=== PATIENT | male | born 1935 | race Caucasian/White ===

== ENCOUNTER → 2019-09-25 09:57 | Outpatient (POV) | payer MEDICARE, OTHER, SELFPAY | PROVIDERS: Visit Provider Dermatology | DX: Z00.00 Encounter for general adult medical examination without abnormal findings (principal) ==

== ENCOUNTER → 2019-12-23 10:52 | Outpatient (CLI) | payer MEDICARE, OTHER, SELFPAY ==
[2019-12-24 16:29] LABS: Covid-19 Nasal PCR Sendout UK Not Detected
== END ==
PROVIDERS: PCP Family Medicine; Visit Provider Ophthalmology
DX: Z03.818 Encounter for observation for suspected exposure to other biological agents ruled out (principal)
CPT/HCPCS: U0003

== ENCOUNTER 2019-12-25 08:26 | Day surgery (SDC) | payer MEDICARE, OTHER, SELFPAY ==
--- NOTE | 2019-12-20 12:37 | SUR.PREOP ---
12/20/2019 @ 5504--PHONE CALL MADE TO PATIENT. PATIENT UNDERSTANDS THAT LAB WORK AND COVID TESTING NEEDS TO BE COMPLETED @ 1100 ON 12/23/2019. PATIENT UNDERSTANDS IF LAB WORK AND COVID-19 TESTS ARE NOT COMPLETED BY 12PM ON THAT DATE, THE SURGERY SCHEDULED WILL BE CANCELLED AND RESCHEDULED FOR ANOTHER TIME.
[2019-12-24 14:57] VITALS: BMI 25.8
[2019-12-25] VITALS (9 sets, daily range): BP systolic 124–152; BP diastolic 58–84; PULSE 51–65; RESP 18–20; TEMP 36.2–37; O2SAT 95–100
== END 2019-12-25 10:56 | disposition home or self-care (01) ==
LOC: OR 08:28
PROVIDERS: PCP Family Medicine; Visit Provider Ophthalmology
DX: H25.811 Combined forms of age-related cataract, right eye (principal); E03.9 Hypothyroidism, unspecified; Z79.899 Other long term (current) drug therapy
CPT/HCPCS: 66984; V2632

== ENCOUNTER → 2020-06-24 10:58 | Outpatient (POV) | payer MEDICARE, OTHER, SELFPAY | PROVIDERS: Visit Provider Dermatology | DX: Z00.00 Encounter for general adult medical examination without abnormal findings (principal) ==

== ENCOUNTER → 2020-07-15 09:51 | Outpatient (POV) | payer MEDICARE, OTHER, SELFPAY | PROVIDERS: Visit Provider Dermatology | DX: Z00.00 Encounter for general adult medical examination without abnormal findings (principal) ==

== ENCOUNTER → 2020-08-04 10:40 | Outpatient (CLI) | payer MEDICARE, OTHER, SELFPAY ==
[2020-08-04 11:18] LABS: Basophils % 0.5 % (0.1-2.0); Eosinophils # 0.1 K/mm3 (0.0-0.4); Eosinophils % 0.9 % (0.1-12.0); Hematocrit 47.7 % (42.0-52.0); Hemoglobin 16.2 g/dL (14.1-18.0); Lymphocytes # 1.5 K/mm3 (0.7-4.5); Mean Corpuscular HGB Conc 33.9 g/dL (31.8-35.4); Mean Corpuscular Hemoglobin 31.6 pg (27.0-31.2); Mean Corpuscular Volume 93.3 fl (80-94); Mean Platelet Volume 8.6 fl (7.4-10.4); Monocytes # 0.3 K/mm3 (0.1-1.0); Monocytes % 5.8 % (1.7-9.3); Neutrophils # 3.4 K/mm3 (1.8-7.8); Neutrophils % 64.8 % (37.0-80.0); Platelet Count 148 K/mm3 (142-424); Red Blood Count 5.12 M/mm3 (4.60-6.20); Red Cell Distribution Width 13.7 % (11.5-17.5); White Blood Count 5.2 K/mm3 (4.8-10.8)
--- NOTE | 2020-08-04 11:28 | ECG_ITS ---
APPROVED REPORT Exam: Resting ECG HR:60 bpm ECG Measurements Heart Rate 60 AXES MA 156 P 16 QRSd 88 QRS 10 QT 386 T -4 QTc 386 Conclusion Normal sinus rhythm Normal ECG Electronically signed by : Diego Fields, 08/05/2020 17:29:14
[2020-08-04 12:11] LABS: Chloride 103 mmol/L (98-107); Sodium 137 mmol/L (136-145)
[2020-08-04 12:14] LABS: Blood Urea Nitrogen 26 mg/dl (9-20); Calcium 9.9 mg/dl (8.4-10.2); Carbon Dioxide 28 mmol/L (22.0-30.0); Estimated Glomerular Filt Rate 53 ml/min (>60); GFR (African American) 64 ML/MIN (>60); Glucose 73 mg/dl (74-100)
[2020-08-04 12:39] LABS: Coronavirus 19 IgG Antibody Negative (Negative); Coronavirus 19 IgM Antibody Negative (Negative)
== END ==
PROVIDERS: Visit Provider Otolaryngology
DX: Z01.818 Encounter for other preprocedural examination (principal); Z03.818 Encounter for observation for suspected exposure to other biological agents ruled out; H61.21 Impacted cerumen, right ear; H60.8X1 Other otitis externa, right ear; L57.0 Actinic keratosis; L98.9 Disorder of the skin and subcutaneous tissue, unspecified
CPT/HCPCS: 36415; 80048; 85025; 86328; 93005

== ENCOUNTER 2020-08-05 06:08 | Day surgery (SDC) | payer MEDICARE, OTHER, SELFPAY ==
[2020-07-31 12:36] VITALS: BMI 25.8
[2020-08-05 06:22] VITALS: BP 146/71; PULSE 69; RESP 18; TEMP 36.3; O2SAT 95
--- NOTE | 2020-08-05 07:36 | P.PN_ITS ---
[facility] Anesthesia Checklist - Patient Identification Patient Identification: Arm Band - Structural Data Admitted From: Home Planned Operative Procedure/s: excision of forehead lesion x2 Consent for Planned Operative Procedure(s) Verified: Yes Verified Documents: Surgical Consent, History and Physical - NPO Status Verified Time NPO: 00:00 - Additional verifications Anesthesia Reactions: No Hx Blood Transfusions: No Blood Transfusion Reaction: No - Airway Assessment C-Spine Mobility Assessed: Yes (mp2) TMJ Mobility Assessed: Yes Dentition: Good Dentition - Neurological Assessment Level of Consciousness: Awake, Alert - Anesthesia Plan Anesthesia Risk discussed: Yes Anesthesia Plan: Verified ASA Class: II Anesthesia Type: MAC [facility] History I have reviewed the patient's past medical history: Yes Medical History: Reports:: BPH, Cancer (skin), Gastroesophageal Reflux Disease(GERD), Hyperlipidemia, Hypertension Denies:: Diabetes Mellitus Type 1, Diabetes Mellitus Type 2, Internal Pacemaker, MRSA, Seizures *Have you ever received a pneumonia vaccine?: Yes *Have you received a flu vaccine this season?: Yes Other Medical History: Reports: Hypothyroidism, Thyroid Disease, Other. Denies: Blood Transfusion Reaction Anesthesia experience/problems:: nac Other Surgeries: Yes: Cancer Surgery, Hernia Repair, Skin Cancer Excision, Other. No: Pacemaker Amputation: No Fractures: No - *Social History Last grade of school completed: Some college Smoking Status: Never smoker Alcohol Intake: never Substance Use Type: denies use *Occupational Status:: retired Housing: house Household Members: spouse *Travel in the last 8 weeks: None Family Hx:: No significant family history
--- NOTE | 2020-08-05 08:28 | HMH.OPNOTE ---
Date of procedure: 08/05/20 Pre-op Diagnosis:: 1. 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 Neoplasm forehead right lateral 2 cm Post-op Diagnosis:: same Procedure performed:: 1. Excision of neoplasm forehead center 2.8 cm with tissue rearrangement geometric plastic repair 2. Excision neoplasm forehead right lateral 2 cm with simple repair Surgeon:: Addi Laughlin MD TONGUE AND GROOVE MACHINE SETTER:: Kenton Marquez Anesthesia: MAC Estimated blood loss (mL): 10 Operative findings:: same Operative note:: The face was prepped and draped the eyes were protected with Steri-Strips the perilesional areas were infiltrated with a total of 4.5 cc of lidocaine 2% lidocaine with epi. The lesions were marked out and the marisol out on the forehead center measured 2.8 cm the marisol up was incised and the lesion was excised and submitted. Bleeding was stopped with bipolar cautery. Medial and lateral incisions were made Surgicel snow was placed in the defect and a tissue rearrangement geometric plastic repair was done with interrupted 4-0 nylon sutures. The lesion on the right forehead lateral was marked out, it measured 2 cm, the marisol out was incised and the lesion was excised. Bleeding was stopped with bipolar cautery. Surgicel snow was placed in the defect and a simple repair was done with interrupted 4-0 nylon sutures, a Dermabond dressing was applied and the patient was sent to recovery in good general condition. Condition: stable Disposition: PACU Complications:: none
[2020-08-05 08:30] VITALS: BP 109/71; PULSE 67; RESP 16; TEMP 36.2; O2SAT 93
[2020-08-05 08:40] VITALS: BP 114/67; PULSE 65; RESP 16; O2SAT 95
[2020-08-05 08:50] VITALS: BP 110/61; PULSE 62; RESP 16; O2SAT 93
[2020-08-05 09:00] VITALS: BP 117/63; PULSE 65; RESP 16; TEMP 36.2; O2SAT 93
== END 2020-08-05 09:03 | disposition home or self-care (01) ==
LOC: OR 06:09
PROVIDERS: PCP Family Medicine; Visit Provider Otolaryngology
DX: L82.1 Other seborrheic keratosis; C44.329 Squamous cell carcinoma of skin of other parts of face; Z85.828 Personal history of other malignant neoplasm of skin; N40.0 Benign prostatic hyperplasia without lower urinary tract symptoms; K21.9 Gastro-esophageal reflux disease without esophagitis; I10 Essential (primary) hypertension; E78.5 Hyperlipidemia, unspecified; E03.9 Hypothyroidism, unspecified
CPT/HCPCS: 11642; 14040; 88305; 96374

== ENCOUNTER → 2020-10-28 10:28 | Outpatient (CLI) | payer MEDICARE, OTHER, SELFPAY ==
--- NOTE | 2020-10-28 11:03 | ECG_ITS ---
APPROVED REPORT Exam: Resting ECG HR:64 bpm ECG Measurements Heart Rate 64 AXES MT 154 P 3 QRSd 96 QRS 39 QT 388 T 0 QTc 400 Conclusion Normal sinus rhythm Normal ECG Electronically signed by : Diego Fields, 10/28/2020 19:35:24
[2020-10-28 11:09] LABS: Basophils % 0.6 % (0.1-2.0); Eosinophils # 0.2 K/mm3 (0.0-0.4); Eosinophils % 2.9 % (0.1-12.0); Hematocrit 46.4 % (42.0-52.0); Hemoglobin 15.3 g/dL (14.1-18.0); Lymphocytes # 1.5 K/mm3 (0.7-4.5); Lymphocytes % 23.6 % (10-50); Mean Corpuscular Hemoglobin 30.5 pg (27.0-31.2); Mean Corpuscular Volume 92.4 fl (80-94); Mean Platelet Volume 8.8 fl (7.4-10.4); Monocytes # 0.3 K/mm3 (0.1-1.0); Monocytes % 4.7 % (1.7-9.3); Neutrophils # 4.3 K/mm3 (1.8-7.8); Neutrophils % 68.2 % (37.0-80.0); Platelet Count 157 K/mm3 (142-424); Red Blood Count 5.02 M/mm3 (4.60-6.20); Red Cell Distribution Width 13.7 % (11.5-17.5); White Blood Count 6.3 K/mm3 (4.8-10.8)
[2020-10-28 11:54] LABS: Coronavirus 19 IgG Antibody Positive (Negative); Coronavirus 19 IgM Antibody Negative (Negative)
== END ==
PROVIDERS: Visit Provider Otolaryngology
DX: Z01.818 Encounter for other preprocedural examination (principal); Z20.822 Contact with and (suspected) exposure to COVID-19; D49.89 Neoplasm of unspecified behavior of other specified sites
CPT/HCPCS: 36415; 85025; 86328; 93005

== ENCOUNTER 2020-10-30 08:04 | Day surgery (SDC) | payer MEDICARE, OTHER, SELFPAY ==
[2020-10-28 11:55] VITALS: BMI 25.8
[2020-10-30 08:23] VITALS: BP 142/71; PULSE 74; RESP 18; TEMP 36.2; O2SAT 94
--- NOTE | 2020-10-30 09:36 | HMH.ANESCL ---
[facility] Anesthesia Checklist - Structural Data Admitted From: Home Planned Operative Procedure/s: excision neoplasm l face x 2 Consent for Planned Operative Procedure(s) Verified: Yes - Additional verifications Anesthesia Reactions: No Hx Blood Transfusions: No Blood Transfusion Reaction: No - Airway Assessment C-Spine Mobility Assessed: Yes TMJ Mobility Assessed: Yes Dentition: Poor Dentition - Neurological Assessment Level of Consciousness: Awake, Alert, Appropriate - Anesthesia Plan Anesthesia Risk discussed: Yes Anesthesia Plan: Verified ASA Class: III Anesthesia Type: MAC [facility] History I have reviewed the patient's past medical history: Yes Medical History: Reports:: BPH, Cancer (skin cancer), Gastroesophageal Reflux Disease(GERD), Hyperlipidemia, Hypertension Denies:: Diabetes Mellitus Type 1, Diabetes Mellitus Type 2, Internal Pacemaker, MRSA, Seizures *Have you ever received a pneumonia vaccine?: Yes *Have you received a flu vaccine this season?: Yes Other Medical History: Reports: Hypothyroidism, Thyroid Disease, Other. Denies: Blood Transfusion Reaction Anesthesia experience/problems:: none Laterality Cases: Bilateral: Cataract Other Surgeries: Yes: Cancer Surgery, Hernia Repair, Skin Cancer Excision, Other. No: Pacemaker Amputation: No Fractures: No - *Social History Smoking Status: Never smoker Alcohol Intake: never Substance Use Type: denies use *Occupational Status:: retired Housing: house Household Members: family *Travel in the last 8 weeks: None Family Hx:: No significant family history
--- NOTE | 2020-10-30 09:57 | P.OP_ITS ---
Date of procedure: 10/30/20 Pre-op Diagnosis:: 1. 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 The eyes were protected with Steri-Strips. The perilesional areas were infiltrated with a total of 6 cc of 2% lidocaine containing epinephrine. The lesion on the left ear was marked out it measured 3.5 cm, the marisol out was incised and the lesion was excised and submitted. Bleeding was stopped with bipolar cautery. Anterior and inferior incisions were made and a tissue rearrangement geometric plastic repair was done after Surgicel snow was placed in the defect. The lesion on the left upper neck measuring 3.8 cm, the markup was incised and the lesion was excised and submitted. Bleeding was stopped with bipolar cautery. Blood loss was 1.0 c ccc and completely stopped. Medial and lateral incisions were made and a tissue rearrangement geometric plastic repair was done with interrupted 4- 0 nylon sutures. Dermabond dressing was applied to both areas and a dot dressing was applied as well. The patient tolerated the procedure well and was sent to recovery in good general condition. Condition: stable Disposition: PACU Complications:: none
[2020-10-30 10:00] VITALS: BP 122/64; PULSE 63; RESP 16; TEMP 36.3; O2SAT 95
[2020-10-30 10:15] VITALS: BP 113/64; PULSE 57; RESP 18; TEMP 36.3; O2SAT 94
[2020-10-30 10:33] VITALS: BP 120/64; PULSE 57; RESP 18; TEMP 36.3; O2SAT 98
== END 2020-10-30 10:34 | disposition home or self-care (01) ==
LOC: OR 08:05
PROVIDERS: PCP Family Medicine; Visit Provider Otolaryngology
PROC: (CPT 14040; principal; 2020-10-30 09:45)
DX: L82.1 Other seborrheic keratosis (principal); Z85.828 Personal history of other malignant neoplasm of skin; I10 Essential (primary) hypertension; E78.5 Hyperlipidemia, unspecified; K21.9 Gastro-esophageal reflux disease without esophagitis; Z79.899 Other long term (current) drug therapy
CPT/HCPCS: 14040; 14060; 88305; 96374

== ENCOUNTER → 2020-11-04 10:31 | Outpatient (POV) | payer MEDICARE, OTHER, SELFPAY | PROVIDERS: Visit Provider Dermatology | DX: Z00.00 Encounter for general adult medical examination without abnormal findings (principal) ==

== ENCOUNTER → 2021-04-13 13:24 | Outpatient (CLI) | payer MEDICARE, OTHER, SELFPAY ==
--- NOTE | 2021-04-13 | CA_ITS ---
APPROVED REPORT EXAM: Comprehensive 2D, Doppler, and color-flow Echocardiogram Interpreter: Aurora Preston CRT Ht: 5 ft 9 in Wt: 184lbs BSA: 1.99 BP: 120/74 mmHg Indications: Murmur, Hyperlipidemia, Hypertension/HDD, gerd, ca 2D Dimensions LVOT 2.02 cm (M/F) 1.5-2.5 LA Volume 36.00 mL LA Volume Index 18.10 mL/m2 (M/F) 16-34 M-Mode Dimensions RVDd 2.92 cm (0.9-2.6) LA Diam 3.26 cm (1.9-4.0) LVDd 4.77 cm (3.5-5.7) Ao Diam 4.09 cm (2.0-3.7) LVDs 2.98 cm (3.5-5.7) IVSd 1.39 cm (0.6-1.1) PWd 0.55 cm (0.6-1.1) EF (Teich) 67.50% FS 37.50% EDV (Teich) 106.00 mL TAPSE 1.64 (<1.7) ESV (Teich) 34.40 mL LV Diastology E Decel Time 217.00 (160-240 msec) E/A Ratio 0.88 MED E' 13.90 (< 7 cm/sec) MED A' 6.80 cm/s E'/MED E' Ratio 5.02 (>14) LAT E' 15.50 (<10 cm/sec) LAT A' 7.30 cm/s E/LAT E' Ratio 4.50 (>14) Aortic Valve AI PHT 757.00 ms AO Peak GR. 6.90 mmHg Mitral Valve MV A Velocity 79.00 (40-130 cm/s) E/A Ratio 0.88 MV Decel. Time 217.00 (160-240 ms) Pulmonary Valve PV Peak Velocity 200.00 (50-150 cm/s) Tricuspid Valve TR P. Velocity 251.00 cm/s RAP Estimate 10.00 mmHg RVSP 35.20 mmHg Left Ventricle Left atrium is mildly enlarged, left ventricle is normal size, mild concentric left ventricular hypertrophy, visually estimated ejection fraction 50% with no regional wall motion abnormality. Diastolic parameters are inconclusive. Right Ventricle Right atrium and right ventricular mildly enlarged with normal contractility. Aortic Valve Aortic valve is thickened and calcified there is no aortic stenosis, there is mild aortic insufficiency. Mitral Valve Mitral valve is minimally thickened, there is mild mitral regurgitation. Tricuspid Valve Tricuspid valve grossly normal, there is mild tricuspid regurgitation. Pulmonic Valve Pulmonic valve is poorly visualized. Great Vessels Aortic root is normal size. Pericardium No significant pericardial effusion noted. Conclusion 1. Mild biatrial enlargement, normal left ventricular size, mild concentric left ventricular hypertrophy, visually estimated ejection fraction 50% with no obvious regional wall motion abnormality, diastolic parameters are inconclusive. 2. Thickened and calcified aortic valve without aortic stenosis, there is mild aortic insufficiency. 3. Mild mitral and tricuspid regurgitation. 4. No significant pericardial effusion noted. Electronically signed by : Sacha Gama MD 04/14/2021 06:39:02
== END ==
PROVIDERS: PCP Family Medicine; Visit Provider Family Medicine
DX: R01.1 Cardiac murmur, unspecified (principal); N40.1 Benign prostatic hyperplasia with lower urinary tract symptoms
CPT/HCPCS: 93306

== ENCOUNTER 2021-05-15 10:29 | Emergency (ER) | payer MEDICARE, OTHER, SELFPAY ==
[2021-05-15 10:39] VITALS: BP 150/74; PULSE 79; RESP 19; TEMP 36.4; O2SAT 98; BMI 25.8
--- NOTE | 2021-05-15 10:48 | HMH.EDUTC ---
[facility] Clinical Impression: Sinusitis Qualifiers: Sinusitis location: unspecified location Chronicity: unspecified Qualified Code(s): J32.9 - Chronic sinusitis, unspecified Disposition: Home, Self-Care Condition on Discharge: Good Instructions: Sinusitis, DI for Sinusitis, Amoxicillin and Clavulanic Acid Additional Instructions: *Monitor Temp, Over the counter Motrin or Tylenol as directed/as needed Tylenol every 4 hours and Motrin every 6 hours (as long as your family doctor has told you that you can take it) for fever or pain. and straight to ER if unable to lower temp less than 101.0 after medication given *Warm salt water gargles may help to soothe the throat *Throat Lozenges *Warm fluids like tea with honey may help to soothe the throat *Sleep elevated *Humidifier/Vaporizer Take medication as prescribed Follow up as needed Return if needed Follow up IMMEDIATELY for new or worsening symptoms or no Noticeable improvement over the next 48-72 hours. 911 for difficulty breathing or swallowing Prescriptions: Amoxicillin/Potassium Clav [Augmentin 875-125 Tablet] 1 tab PO Q12H 7 Days #14 tab Transmission Status: Pending to [facility] Referrals: Diego Cook MD [Primary Care Provider] - As needed Time of Disposition: 11:00 Medical Decision Making - David Inquiry Pt receiving controlled substance: No David was queried for this patient: No Vital Signs: 05/15/21 10:39 05/15/21 10:57 Temperature 97.6 F 97.6 F Temperature Source Oral Pulse Rate 79 Pulse Rate [Left] 79 Respiratory Rate 19 19 Blood Pressure 150/74 H Blood Pressure [Right Arm] 150/74 H Blood Pressure Mean [Right Arm] 99 02 Sat by Pulse Oximetry 98 Medical Decision Narrative: Due to patient age medication was discussed with pharmacy [facility] - General Stated complaint: sore throat and sinus drainage Time Seen by Provider: 05/15/21 10:48 Mode of Arrival: Ambulatory Source of Information: Patient Limitations: No Limitations Description of Symptoms (Recalled from Triage Doc. by RN): pt c/o sinus drainage/pressure and a sore throat. HEENT Symptoms (Recalled from RN notes): Yes (sore throat and sinus drainage/pressure) Resp Symptoms (Recalled from RN notes): No Skin Symptoms (Recalled from RN notes): No MS Symptoms (Recalled from RN notes): No Functional Status (Recalled from RN notes): na - History of Present Illness Provider Complaint: Patient states that he has been sick for over a week with his sinuses States that he has been having sinus pain and pressure along with sore scratchy throat States that he is suppose to have a procedure done next week and wanted to make sure to get treated before then - Related Data Home Medications Medication Instructions Recorded Confirmed alfuzosin 10 mg tablet,extended 10 mg PO DAILY 90 Days #90 09/29/17 05/06/21 release 24 hr finasteride 5 mg tablet 5 mg PO DAILY 90 Days #90 09/29/17 05/06/21 lxjeqfxs-[id number]-xcrjnhdn 3.5 3 drops OPHTHALMIC DAILY 5 Days #5 09/29/17 05/06/21 mg/mL-10,000 unit/mL-0.1% eye drops omeprazole 40 mg capsule,delayed 40 mg PO DAILY 90 Days #90 09/29/17 05/06/21 release sildenafil 100 mg tablet 100 mg PO DAILY 90 Days #18 09/29/17 05/06/21 simvastatin 40 mg tablet 40 mg PO DAILY 90 Days #90 09/29/17 05/06/21 cetirizine 10 mg tablet 10 mg PO DAILY tab 12/27/19 05/06/21 ibuprofen 800 mg tablet 800 mg PO DAILY tab 12/27/19 05/06/21 levothyroxine 50 mcg tablet 50 mcg PO DAILY tab 12/27/19 05/06/21 Azelastine/Fluticasone [Dymista 23 gm NS BID 07/31/20 05/06/21 Nasal [place]] Previous Rx's Medication Instructions Recorded Amoxicillin/Potassium Clav 1 tab PO Q12H 7 Days #14 tab 05/15/21 [Augmentin 875-125 Tablet] Allergies Allergy/AdvReac Type Severity Reaction Status Date / Time No Known Drug Allergies Allergy Unknown Verified 05/11/21 13:23 [NKDA] - Worker's Comp Is this a Worker's Comp case?: No [facility]
[2021-05-15 10:57] VITALS: BP 150/74; PULSE 79; RESP 19; TEMP 36.4
== END 2021-05-15 11:02 | disposition home or self-care (01) ==
PROVIDERS: Emergency Provider Nurse Practitioner; PCP Family Medicine
DX: J32.9 Chronic sinusitis, unspecified (principal); J02.9 Acute pharyngitis, unspecified; K21.9 Gastro-esophageal reflux disease without esophagitis; E78.5 Hyperlipidemia, unspecified; I10 Essential (primary) hypertension; E03.9 Hypothyroidism, unspecified; Z79.899 Other long term (current) drug therapy
CPT/HCPCS: G0463; 99202

== ENCOUNTER → 2021-06-29 11:24 | Outpatient (CLI) | payer MEDICARE, OTHER, SELFPAY | PROVIDERS: Visit Provider Surgery | DX: Z01.812 Encounter for preprocedural laboratory examination (principal); Z11.52 Encounter for screening for COVID-19; Z12.11 Encounter for screening for malignant neoplasm of colon | CPT/HCPCS: C9803; U0003; U0005 ==

== ENCOUNTER 2021-07-01 07:23 | Day surgery (SDC) | payer MEDICARE, OTHER, SELFPAY ==
[2021-06-26 13:00] VITALS: BMI 25.8
--- NOTE | 2021-07-01 07:00 | HMH.GSHP ---
HPI HPI: Patient is a pleasant 85-year-old male. Primary care provider is Diego Cook MD. He presents to the office for scheduling of colonoscopy. Patient did have a colonoscopy at approximately age 66 according to the record. Dr. Best performed a colonoscopy on 11/08/2013 at which time he had 6 polyps removed. He had numerous tubular adenomas without dysplasia and had a sessile serrated adenoma in the cecum. He had follow-up colonoscopy by Dr. Best on 11/20/2015 and had a tubular adenoma in the transverse colon. He is without complaints. Denies any melena or rectal bleeding. No family history of colon cancer. [facility] History I have reviewed the patient's past medical history: Yes Medical History: Reports:: BPH, Gastroesophageal Reflux Disease(GERD), Hyperlipidemia, Hypertension Denies:: Cancer, Diabetes Mellitus Type 1, Diabetes Mellitus Type 2, Internal Pacemaker, MRSA, Seizures *Have you ever received a pneumonia vaccine?: Yes *Have you received a flu vaccine this season?: Yes Other Medical History: Reports: Hypothyroidism, Thyroid Disease, Other. Denies: Blood Transfusion Reaction Laterality Cases: Left: Cataract Other Surgeries: Yes: Cancer Surgery, Colonoscopy, Hernia Repair, Skin Cancer Excision, Other. No: Pacemaker Amputation: No Fractures: No - *Social History Last grade of school completed: High school graduate Smoking Status: Never smoker Alcohol Intake: never Substance Use Type: denies use *Occupational Status:: retired Housing: house Household Members: family *Travel in the last 8 weeks: None Family Hx:: No significant family history Review of Systems - Review of Systems Review of systems:: pertinent systems reviewed and negative unless documented below Meds Home Medications Medication Instructions Recorded Confirmed Type alfuzosin 10 mg tablet,extended 10 mg PO DAILY 90 Days #90 09/29/17 06/26/21 History release 24 hr finasteride 5 mg tablet 5 mg PO DAILY 90 Days #90 09/29/17 06/26/21 History omeprazole 40 mg capsule,delayed 40 mg PO DAILY 90 Days #09/29/17 06/26/21 History release simvastatin 40 mg tablet 40 mg PO DAILY 90 Days #90 09/29/17 06/26/21 History ibuprofen 800 mg tablet 800 mg PO DAILY tab 12/27/19 06/26/21 History levothyroxine 50 mcg tablet 50 mcg PO DAILY tab 12/27/19 06/26/21 History Azelastine/Fluticasone [Dymista 23 gm NS BID 07/31/20 06/26/21 History Nasal [place]] Allergies Allergy/AdvReac Type Severity Reaction Status Date / Time No Known Drug Allergies Allergy Unknown Verified 06/25/21 13:15 [NKDA] Exam - Constitutional no acute distress - *Routine HEENT Exam Head: Present: normocephalic Eye: Present: EOMI, PERRL ENT: Present: mucous membranes moist - *Routine Neck Exam Present: supple. Absent: lymphadenopathy - *Routine Respiratory Exam Present: CTA bilaterally - *Routine Cardiovascular Exam Present: RRR - *Routine Abdominal Exam Present: soft, normoactive bowel sounds. Absent: tenderness - *Routine Rectal Exam Rectal:: deferred - *Routine Genitalia Exam Genitalia:: deferred - *Routine Extremities Exam Absent: cyanosis, clubbing, edema - *Routine Skin Exam Present: warm. Absent: rash - *Routine Neurological Exam Present: alert, oriented X3 Assessment and Plan - Assessment and plan all Dx Assessment and Plan for all problems:: Proceed with colonoscopy due to history of adenomatous polyps
[2021-07-01 07:43] VITALS: BP 151/75; PULSE 72; RESP 18; TEMP 36.9; O2SAT 98
[2021-07-01 08:21] VITALS: O2SAT 97
[2021-07-01 09:07] VITALS: BP 110/71; PULSE 60; RESP 16; TEMP 36.1; O2SAT 94
--- NOTE | 2021-07-01 09:08 | P.PCN_ITS ---
- Procedure: Date: 07/01/21 Patient Date of :: 1935 Procedure Performed:: Total colonoscopy to terminal ileum with numerous polypectomy Indications:: Patient is a pleasant 85-year-old male. Primary care provider is Diego Cook MD. He presents to the office for scheduling of colonoscopy. Patient did have a colonoscopy at approximately age 66 according to the record. Dr. Best performed a colonoscopy on 11/08/2013 at which time he had 6 polyps removed. He had numerous tubular adenomas without dysplasia and had a sessile serrated adenoma in the cecum. He had follow-up colonoscopy by Dr. Best on 11/20/2015 and had a tubular adenoma in the transverse colon. He is without complaints. Denies any melena or rectal bleeding. No family history of colon cancer. Performing Provider:: Keven Lombardo MD Referring Provider:: Diego Cook MD Sedation:: MAC sedation Procedure:: Patient was taken to endoscopy procedure room. He was positioned in lateral decubitus position. Adequate intravenous sedation was achieved with anesthesia titration of propofol. Digital examination was performed which revealed enlarged prostate. Variable stiffness Olympus colonoscope was inserted via the anus. It was advanced to the cecum. Colonic preparation was good and visualization was good. Colonoscope was advanced short distance into the terminal ileum which appeared grossly normal. Colonoscope was withdrawn through the colon with careful surveillance. In the ascending colon there is a moderate polyp removed with cold cutting snare. There at the hepatic flexure there were a couple of polyps removed with snare. He did have a rather large ridge polyp in this region removed with hot snare. In proximal transverse colon there were 2 tiny diminutive polyps 1 removed with cold snare 1 with biopsy forceps. In the mid transverse colon there was a adenomatous appearing polyp removed with cold snare. In the distal transverse colon there was an irregular sessile polyp removed with cold snare. Some of these polyps measured greater than 1 cm. He did have some degree of left-sided diverticulosis. Retroflexion within the rect um revealed no evidence of any pathologic internal hemorrhoids. Colonoscope was withdrawn. Findings:: He had a total of 8 polyps removed of various sizes. Some of these were greater than 1 cm. Left-sided diverticulosis Somewhat enlarged prostate Recommendations:: Pending the patient's health status repeat colonoscopy 2 or 3 years pending the pathology Complications:: None immediately apparent Estimated blood obtained (mL): 4
[2021-07-01 09:17] VITALS: BP 115/61; PULSE 53; RESP 16; O2SAT 99
[2021-07-01 09:27] VITALS: BP 121/91; PULSE 57; RESP 16; O2SAT 97
[2021-07-01 09:37] VITALS: BP 118/68; PULSE 56; RESP 16; O2SAT 97
--- NOTE | 2021-07-01 13:57 | P.PN_ITS ---
[facility] Anesthesia Checklist - Patient Identification Patient Identification: Verbal (Name & ) - Structural Data Admitted From: Home Planned Operative Procedure/s: Colonoscopy Consent for Planned Operative Procedure(s) Verified: Yes Verified Documents: Surgical Consent - NPO Status Verified Time NPO: 00:00 - Additional verifications Anesthesia Reactions: No Hx Blood Transfusions: No Blood Transfusion Reaction: No - Cardiovascular Assessment Heart Sounds: S1 & S2 - Airway Assessment C-Spine Mobility Assessed: Yes TMJ Mobility Assessed: Yes Dentition: Dentures-good fit - Neurological Assessment Level of Consciousness: Awake, Alert, Appropriate - Anesthesia Plan Anesthesia Risk discussed: Yes ASA Class: II Anesthesia Type: General [facility] History Medical History: Reports:: BPH, Gastroesophageal Reflux Disease(GERD), Hyperlipidemia, Hypertension Denies:: Cancer, Diabetes Mellitus Type 1, Diabetes Mellitus Type 2, Internal Pacemaker, MRSA, Seizures *Have you ever received a pneumonia vaccine?: Yes *Have you received a flu vaccine this season?: Yes Other Medical History: Reports: Hypothyroidism, Thyroid Disease, Other. Denies: Blood Transfusion Reaction Anesthesia experience/problems:: none Laterality Cases: Left: Cataract Other Surgeries: Yes: Cancer Surgery, Colonoscopy, Hernia Repair, Skin Cancer Excision, Other. No: Pacemaker Amputation: No Fractures: No - *Social History Last grade of school completed: High school graduate Smoking Status: Never smoker Alcohol Intake: never Substance Use Type: denies use *Occupational Status:: retired Housing: house Household Members: family *Travel in the last 8 weeks: None Family Hx:: No significant family history
== END 2021-07-01 09:37 | disposition home or self-care (01) ==
LOC: OUTP 07:25
PROVIDERS: PCP Family Medicine; Visit Provider Surgery
PROC: 0DJD8ZZ Inspection of Lower Intestinal Tract, Via Natural or Artificial Opening Endoscopic (ICD-10-PCS; principal; 2021-07-01 08:30)
DX: Z12.11 Encounter for screening for malignant neoplasm of colon (principal); Z86.010 Personal history of colon polyps; K63.5 Polyp of colon; K57.30 Diverticulosis of large intestine without perforation or abscess without bleeding; N40.0 Benign prostatic hyperplasia without lower urinary tract symptoms; K21.9 Gastro-esophageal reflux disease without esophagitis; E78.5 Hyperlipidemia, unspecified; I10 Essential (primary) hypertension; E03.9 Hypothyroidism, unspecified; Z85.828 Personal history of other malignant neoplasm of skin; Z79.899 Other long term (current) drug therapy
CPT/HCPCS: 45385; 88305

== ENCOUNTER 2021-08-09 11:16 | Emergency (ER) | payer MEDICARE, OTHER, SELFPAY ==
[2021-08-09 13:03] VITALS: BP 122/46; PULSE 96; RESP 19; O2SAT 96; BMI 25.8
--- NOTE | 2021-08-09 13:29 | HMH.EDUTC ---
[facility] Clinical Impression: Viral URI Disposition: Home, Self-Care Condition on Discharge: Good Instructions: DI for Viral Upper Respiratory Infection -- Adult Additional Instructions: covid swab was sent to lab, call later today for results. self isolate until test results are known to be negative No sign of a bacterial infection. Likely viral. Viruses can take 7-14 days to run their course. Nasal saline and bulb syringe or nose Swati to remove nasal drainage to help with nasal congestion. Hard to eat, drink, sleep with nasal congestion so important to keep this cleaned out. Monitor temp. Tylenol or Motrin as needed for pain or fever Encourage fluids, water, Gatorade, Powerade, Pedialyte if infant/toddler/child Warm salt water gargles Warm fluids Sore throat lozenges Sleep elevated Humidifier/vaporizer Follow-up immediately for new or worsening symptoms or no noticeable improvement over the next 48-72 hours. Referrals: Diego Cook MD [Primary Care Provider] - Time of Disposition: 13:45 Medical Decision Making - David Inquiry Pt receiving controlled substance: No Vital Signs: 08/09/21 13:03 Temperature Source Oral Pulse Rate [Right Radial] 96 H Respiratory Rate 19 Blood Pressure [Right Arm] 122/46 L Blood Pressure Mean [Right Arm] 71 Blood Pressure Source [Right Arm] Automatic Cuff Blood Pressure Position [Right Arm] Sitting 02 Sat by Pulse Oximetry 96 Oxygen Delivery Method Room Air - Lab Data Lab Results 08/09/21 13:08: Influenza Type A Ag Negative, Influenza Type B Ag Negative Orders (Tests/Meds): ORDERS Category Date Time Status Covid-19 Nasal PCR ([facility]) Routine Lab 08/09/21 13:12 Received [facility] [place] - General Chief complaint: [facility] Stated complaint: fever/chills, weakness, runny nose Time Seen by Provider: 08/09/21 13:29 Mode of Arrival: Ambulatory Source of Information: Patient Limitations: No Limitations Description of Symptoms (Recalled from Triage Doc. by RN): Pt stated that tuesday he received his booster shot and he has felt good since. Pt stated that he has nasal drainage, coughing, and feels weak. HEENT Symptoms (Recalled from RN notes): Yes Resp Symptoms (Recalled from RN notes): No Skin Symptoms (Recalled from RN notes): No MS Symptoms (Recalled from RN notes): No Functional Status (Recalled from RN notes): n/a - History of Present Illness Provider Complaint: 85 yr old male presents for nasal congestion, sinus pressure, sore throat and weakness. had covid booster on weds - Related Data Home Medications Medication Instructions Recorded Confirmed alfuzosin 10 mg tablet,extended 10 mg PO DAILY 90 Days #90 09/29/17 07/24/21 release 24 hr finasteride 5 mg tablet 5 mg PO DAILY 90 Days #90 09/29/17 07/24/21 omeprazole 40 mg capsule,delayed 40 mg PO DAILY 90 Days #90 09/29/17 07/24/21 release simvastatin 40 mg tablet 40 mg PO DAILY 90 Days #90 09/29/17 07/24/21 ibuprofen 800 mg tablet 800 mg PO DAILY tab 12/27/19 07/24/21 levothyroxine 50 mcg tablet 50 mcg PO DAILY tab 12/27/19 07/24/21 Azelastine/Fluticasone [Dymista 23 gm NS BID 07/31/20 07/24/21 Nasal [place]] Acetaminophen/Diphenhydramine 1 each PO DAILYP PRN 07/01/21 07/24/21 [Tylenol Pm Ex-Strength Caplet] Allergies Allergy/AdvReac Type Severity Reaction Status Date / Time No Known Drug Allergies Allergy Unknown Verified 08/09/21 13:03 [NKDA] - Worker's Comp Is this a Worker's Comp case?: No [facility] History - Hepatitis A Screen Drug use history?: No High risk sexual behaviors?: No History of sexually transmitted infection?: No Currently employed?: No Childcare worker?: No Do you have indoor plumbing?: Yes Do you have electricity?: Yes Attestation statement:: This patient has been screened for Hepatitis A risk factors. I have reviewed the patient's past medical history: Yes Medical History: Reports:: BPH, Gastroesophageal Reflux Disease(GERD
[2021-08-09 13:30] LABS: UTC Influenza A Antigen Negative (Negative); UTC Influenza B Antigen Negative (Negative)
[2021-08-09 14:09] VITALS: BP 122/46; PULSE 96; RESP 18; TEMP 37.2; O2SAT 96
== END 2021-08-09 14:09 | disposition home or self-care (01) ==
PROVIDERS: Emergency Provider Nurse Practitioner Family; PCP Family Medicine
DX: U07.1 COVID-19 (principal); J06.9 Acute upper respiratory infection, unspecified; K21.9 Gastro-esophageal reflux disease without esophagitis; E78.5 Hyperlipidemia, unspecified; I10 Essential (primary) hypertension; E03.9 Hypothyroidism, unspecified
CPT/HCPCS: G0463; 87804; 99202; C9803; U0003; U0005

== ENCOUNTER → 2021-08-11 09:05 | Outpatient (CLI) | payer MEDICARE, OTHER, SELFPAY ==
[2021-08-11] VITALS (8 sets, daily range): BP systolic 104–143; BP diastolic 50–76; PULSE 54–65; RESP 16; O2SAT 95–98
== END ==
PROVIDERS: Visit Provider Family Medicine
DX: U07.1 COVID-19 (principal); Z23 Encounter for immunization
CPT/HCPCS: 96365

== ENCOUNTER 2022-07-10 11:09 | Emergency (ER) | payer MEDICARE, OTHER, SELFPAY ==
[2022-07-10 12:45] VITALS: BP 140/85; PULSE 64; RESP 16; TEMP 36.8; O2SAT 97; BMI 25.8
--- NOTE | 2022-07-10 12:53 | EXP.UTC ---
Discharge Plan Disposition Patient Disposition: Home, Self-Care Condition: Good Prescriptions Prescriptions: New prednisone 10 mg tablet 10 mg PO BID 5 Days Qty: 10 0RF benzonatate 100 mg capsule 100 mg PO TID PRN (Reason: cough) Qty: 30 0RF amoxicillin-pot clavulanate 875-125 mg Tablet 1 tab PO Q12H Qty: 14 0RF No Action simvastatin 40 mg tablet 40 mg PO DAILY 90 Days Qty: 90 Label Comments: omeprazole 40 mg capsule,delayed release(DR/EC) 40 mg PO DAILY 90 Days Qty: 90 Label Comments: alfuzosin 10 mg tablet extended release 24 hr 10 mg PO DAILY 90 Days Qty: 90 Label Comments: finasteride 5 mg tablet 5 mg PO DAILY 90 Days Qty: 90 Label Comments: ibuprofen 800 mg tablet 800 mg PO DAILY levothyroxine 50 mcg tablet 50 mcg PO DAILY azelastine-fluticasone 23 GM spray,non-aerosol 23 gm NS BID diphenhydramine-acetaminophen 1 EACH tablet 1 each PO DAILYP PRN (Reason: Sleep) Referrals Follow up/Referrals: Odalis Franklin MD [Primary Care Provider] - See instructions Clinical Impressions Clinical Impression: Sinusitis Instructions Patient Instructions: DI for Sinusitis, Sinusitis Discharge ED Provider: Adelaida Neely [facility] [place] General Stated complaint: congestion, cough, runny nose Time Seen by Provider: 07/10/22 12:53 History of Present Illness Provider Complaint: Patient states that he has been having sinus pain and pressure, cough, drainage in the back of his throat States that it is worse when he lays down State that the coughing is making his throat sore and scratchy Related Data Home Medications Medication Instructions Recorded Confirmed alfuzosin 10 mg tablet,extended 10 mg PO DAILY urinary retention 09/29/17 07/24/21 release 24 hr 90 days ##90 finasteride 5 mg tablet 5 mg PO DAILY Cholesterol 90 days 09/29/17 07/24/21 ##90 omeprazole 40 mg capsule,delayed 40 mg PO DAILY stomach 90 days ##90 09/29/17 07/24/21 release simvastatin 40 mg tablet 40 mg PO DAILY Cholesterol 90 days 09/29/17 07/24/21 ##90 ibuprofen 800 mg tablet 800 mg PO DAILY Pain 12/27/19 07/24/21 levothyroxine 50 mcg tablet 50 mcg PO DAILY thyroid 12/27/19 07/24/21 azelastine-fluticasone 137 mcg-50 23 gm NS BID sinuses 07/31/20 07/24/21 mcg/spray nasal spray diphenhydramine 25 1 each PO DAILYP PRN Sleep 07/01/21 07/24/21 mg-acetaminophen 500 mg tablet Previous Rx's Medication Instructions Recorded amoxicillin 875 mg-potassium 1 tab PO Q12H #14 tabs 07/10/22 clavulanate 125 mg tablet benzonatate 100 mg capsule 100 mg PO TID PRN cough #30 caps 07/10/22 prednisone 10 mg tablet 10 mg PO BID 5 days #10 tabs 07/10/22 Allergies Allergy/AdvReac Type Severity Reaction Status Date / Time No Known Drug Allergies Allergy Unknown Verified 08/09/21 13:03 [NKDA] [facility] Surgical History (Updated 07/10/22 @ 13:06 by Alondra Ramos RN) History of tonsillectomy and adenoidectomy Social History Smoking Status: Never smoker second hand exposure: No alcohol intake: never substance use type: denies use current occupational status: retired Travel in the last 8 weeks: None household members: family housing: house current occupational exposures/hazards: No caffeine: Yes ROS Obtained: Yes All systems reviewed & no additional complaints except as documented and Yes Systems reviewed as appropriate & no additional complaints except as documented Constitutional Constitutional: Reports system reviewed and no additional complaints, except as documented and Reports as per HPI ENT Ears, Nose, Mouth, and Throat: Reports system reviewed and no additional complaints, except as documented, Reports as per HPI, Reports sinus pain, Reports sinus pressure and Reports sore throat Cardiovascular Cardiovascular: Reports system reviewed and no additional complaints, except as documented and Reports as pe
[2022-07-10 13:17] VITALS: BP 140/85; PULSE 64; RESP 16; TEMP 36.8; O2SAT 97
== END 2022-07-10 13:24 | disposition home or self-care (01) ==
PROVIDERS: Emergency Provider Nurse Practitioner; PCP Family Medicine
DX: J32.9 Chronic sinusitis, unspecified (principal)
CPT/HCPCS: 99212; G0463

== ENCOUNTER → 2022-08-16 10:09 | Outpatient (CLI) | payer MEDICARE, OTHER, SELFPAY | PROVIDERS: PCP Student in an Organized Health Care Education/Training Program; Visit Provider Student in an Organized Health Care Education/Training Program | DX: R05.9 Cough, unspecified (principal) | CPT/HCPCS: C9803; U0003; U0005 ==

== ENCOUNTER → 2023-03-17 14:22 | Outpatient (CLI) | payer MEDICARE, OTHER, SELFPAY ==
--- NOTE | 2023-03-17 14:30 | XR_ITS ---
FINAL REPORT CLINICAL HISTORY: Left Knee Pain FINDINGS: Left knee Three views were obtained. There is no acute fracture or dislocation. There are mild degenerative changes. No joint effusion is identified. No soft tissue abnormality is identified. IMPRESSION: No acute process. Reviewed, Interpreted and Dictated by Keven Noriega III, MD Transcribed by Laya Lopez Authenticated and [facility]
== END ==
PROVIDERS: PCP Nurse Practitioner Family; Visit Provider Internal Medicine
DX: M25.562 Pain in left knee (principal)
CPT/HCPCS: 73562

== ENCOUNTER 2023-04-09 17:32 | Emergency (ER) | payer MEDICARE, OTHER, SELFPAY ==
[2023-04-09 17:32] VITALS: BP 132/64; PULSE 66; RESP 18; TEMP 36.6; O2SAT 94; BMI 24.3
--- NOTE | 2023-04-09 18:32 | EXP.UTC ---
Discharge Plan Disposition Patient Disposition: Home, Self-Care Condition: Good Prescriptions Prescriptions: No Action simvastatin 40 mg tablet 40 mg PO DAILY 90 Days Qty: 90 Patient Comments: omeprazole 40 mg capsule,delayed release(DR/EC) 40 mg PO DAILY 90 Days Qty: 90 Patient Comments: alfuzosin 10 mg tablet extended release 24 hr 10 mg PO DAILY 90 Days Qty: 90 Patient Comments: finasteride 5 mg tablet 5 mg PO DAILY 90 Days Qty: 90 Patient Comments: ibuprofen 800 mg tablet 800 mg PO DAILY PRN (Reason: Pain) levothyroxine 50 mcg tablet 25 mcg PO DAILY sildenafil [Viagra] 100 mg tablet 100 mg PO DAILY PRN Rx Instructions: administer 30 minutes to 4 hours before activity multivitamin [Daily Multi-Vitamin] Tablet 1 tab PO DAILY azelastine-fluticasone 23 GM spray,non-aerosol 23 g intranasal BID Referrals Follow up/Referrals: Azar Luna DO [Primary Care Provider] - See instructions Activity Restrictions/Add. Instructions Additional Instructions/Restrictions: Gentle compression Elevate feet Follow up with Dr Luna Tuesday - may need fluid pill Return to ER if pain, shortness of breath Clinical Impressions Clinical Impression: Chronic venous insufficiency, Bilateral edema of lower extremity Instructions Patient Instructions: DI for Peripheral Edema -- Bilateral Discharge ED Provider: Thu Godoy [facility] [place] General Stated complaint: lt leg pain, congestion Time Seen by Provider: 04/09/23 18:35 History of Present Illness Provider Complaint: Patient has had swelling in left lower leg since this morning. Has a knot on the left anterior norris. Has some bruising in his foot. No pain and no injury. Had a superficial DVT 5 or so years ago. Onset (ago): hour(s) (10) Location: left and lower extremity Relieving factors: none Exacerbating factors: none Associated symptoms: denies other symptoms Treatments prior to arrival: none Related Data Home Medications Medication Instructions Recorded Confirmed alfuzosin 10 mg tablet,extended 10 mg PO DAILY urinary retention 09/29/17 03/17/23 release 24 hr 90 days ##90 finasteride 5 mg tablet 5 mg PO DAILY Cholesterol 90 days 09/29/17 03/17/23 ##90 omeprazole 40 mg capsule,delayed 40 mg PO DAILY stomach 90 days ##90 09/29/17 03/17/23 release simvastatin 40 mg tablet 40 mg PO DAILY Cholesterol 90 days 09/29/17 08/16/22 ##90 azelastine-fluticasone 137 mcg-50 23 g intranasal BID sinuses 07/31/20 03/17/23 mcg/spray nasal spray ibuprofen 800 mg tablet 800 mg PO DAILY PRN Pain 03/17/23 03/17/23 levothyroxine 50 mcg tablet 25 mcg PO DAILY thyroid 03/17/23 03/17/23 multivitamin (Daily Multi-Vitamin 1 tab PO DAILY 03/17/23 03/17/23 tablet) sildenafil 100 mg tablet (Viagra) 100 mg PO DAILY PRN 03/17/23 03/17/23 Allergies Allergy/AdvReac Type Severity Reaction Status Date / Time No Known Drug Allergies Allergy Unknown Verified 03/17/23 13:17 [NKDA] [facility] Disclaimer: The information contained in this section may have been updated after the patient was seen, as this information can be updated by other users. Medical History (Updated 04/09/23 @ 18:52 by ERICK Solares) Allergies Arthritis Hyperlipidemia Hypothyroid Macular hole Surgical History (Updated 03/17/23 @ 13:31 by Forest Richards LPN) H/O blepharoplasty H/O cataract removal with insertion of prosthetic lens H/O detached retina repair H/O neck surgery H/O umbilical hernia repair History of nasal surgery History of tonsillectomy and adenoidectomy Family History (Updated 03/17/23 @ 13:31 by Forset Richards LPN) Coronary artery disease Father Social History (Updated 03/17/23 @ 13:22 by Forest Richards LPN) Smoking Status: Former smoker years smoked: 30 second hand exposure: No alcohol intake: never substance use type: de
[2023-04-09 19:34] VITALS: BP 132/64; PULSE 66; RESP 18; TEMP 36.6; O2SAT 94
== END 2023-04-09 19:35 | disposition home or self-care (01) ==
PROVIDERS: Emergency Provider Physician Assistant; PCP Internal Medicine
DX: I87.2 Venous insufficiency (chronic) (peripheral) (principal); R60.0 Localized edema; E03.9 Hypothyroidism, unspecified; E78.5 Hyperlipidemia, unspecified; M13.0 Polyarthritis, unspecified; Z87.891 Personal history of nicotine dependence
CPT/HCPCS: 99212; 99213; G0463

== ENCOUNTER → 2023-04-11 12:49 | Outpatient (CLI) | payer MEDICARE, OTHER, SELFPAY ==
--- NOTE | 2023-04-11 12:53 | CA_ITS ---
FINAL REPORT TECHNIQUE: Ultrasound images of the deep venous system were obtained from the left groin to the calf veins. CLINICAL HISTORY: Pain, swelling, evaluation for thrombus FINDINGS: The deep venous system is normally compressible. Normal flow is identified. IMPRESSION: No evidence of left lower extremity DVT. Reviewed, Interpreted and Dictated by Gennaro Cervantes MD Transcribed by Sharlene Saxena Authenticated and [facility]
== END ==
PROVIDERS: PCP Internal Medicine; Visit Provider Internal Medicine
DX: I82.811 Embolism and thrombosis of superficial veins of right lower extremity (principal); I82.812 Embolism and thrombosis of superficial veins of left lower extremity; M79.662 Pain in left lower leg
CPT/HCPCS: 93971

== ENCOUNTER 2023-08-17 08:38 | Outpatient (CLI) | payer MEDICARE, OTHER, SELFPAY ==
[2023-08-17 19:11] LABS: Alanine Aminotransferase 17 U/L (12-78); Albumin Level 4.2 g/dl (3.5-5.0); Albumin/Globulin Ratio 1.4 (1.1-1.8); Alkaline Phosphatase 96 U/L (38-126); Anion Gap 11.3 mEq/L (5-15); Aspartate Amino Transferase 32 U/L (17-59); Bilirubin,Total 0.4 mg/dl (0.2-1.3); Blood Urea Nitrogen 23 mg/dl (9-20); Calcium 8.8 mg/dl (8.4-10.2); Carbon Dioxide 24 mmol/L (22.0-30.0); Chloride 102 mmol/L (98-107); Chol/HDL Ratio 6.9 (1-3.5); Cholesterol 290 mg/dl (140-200); Estimated Glomerular Filt Rate 48 ml/min (>60); GFR (African American) 58 ML/MIN (>60); Globulin 2.9 g/dL (1.3-3.2); Glucose 67 mg/dl (74-100); HDL Cholesterol 42 mg/dl (40-60); Potassium 4.3 mmoL/L (3.5-5.1); Sodium 133 mmol/L (136-145); Total Protein,Serum 7.1 g/dl (6.3-8.2); Triglycerides 182 mg/dl (30-150); VLDL Cholesterol 36 mg/dL (0-40)
[2023-08-17 19:32] LABS: Direct LDL Cholesterol 173.54 mg/dL (100-129)
[2023-08-17 19:33] LABS: T4 (Thyroxine) 8.9 ug/dl (5.53-11.0)
[2023-08-17 19:46] LABS: Prostate Specific Ag Screen 2.3 ng/ml (0.0-4.0); Thyroid Stimulating Hormone 3.43 uIU/mL (0.465-4.68)
[2023-08-19 06:11] LABS: Triiodothyronine (T3) Free 2.3 pg/mL (2.0-4.4)
== END 2023-08-17 23:59 ==
LOC: LAB.DROPOF 08-18 08:38
PROVIDERS: PCP Nurse Practitioner Family; Visit Provider Nurse Practitioner Family
DX: R60.0 Localized edema (principal); E78.5 Hyperlipidemia, unspecified; E03.9 Hypothyroidism, unspecified; Z12.5 Encounter for screening for malignant neoplasm of prostate
CPT/HCPCS: 80053; 80061; 84436; 84443; 84481; G0103

== ENCOUNTER 2023-12-06 10:14 | Outpatient (CLI) | payer MEDICARE, OTHER, SELFPAY | END 2023-12-06 23:59 | disposition home or self-care (01) | LOC: LAB.DROPOF 12-07 10:15 | PROVIDERS: PCP Nurse Practitioner Family; Visit Provider Nurse Practitioner Family | DX: R50.9 Fever, unspecified (principal); R05.9 Cough, unspecified | CPT/HCPCS: 87635 ==

== ENCOUNTER 2024-01-11 13:18 | Outpatient (POV) | payer MEDICARE, OTHER, SELFPAY | END 2024-01-11 23:59 | disposition home or self-care (01) | LOC: SC 13:56 | PROVIDERS: Visit Provider Specialist/Technologist | DX: Z00.00 Encounter for general adult medical examination without abnormal findings (principal) ==

== ENCOUNTER 2024-05-23 09:40 | Outpatient (CLI) | payer MEDICARE, OTHER, SELFPAY ==
[2024-05-23 18:02] LABS: Adenovirus,PCR Not Detected (NotDetected); Bordetella Pertussis Not Detected (NotDetected); Chlamydophila Pneumoniae, PCR Not Detected (NotDetected); Coronavirus 19, PCR Not Detected (NotDetected); Coronavirus 229E Not Detected (NotDetected); Coronavirus NL63 Not Detected (NotDetected); Coronavirus OC43 Not Detected (NotDetected); Coronovirus HKU1,PCR Not Detected (NotDetected); Human Metapneumovirus Not Detected (NotDetected); Influenza A, PCR Not Detected (NotDetected); Influenza AH1, 2009 Not Detected (NotDetected); Influenza AH1, PCR Not Detected (NotDetected); Influenza AH3,PCR Not Detected (NotDetected); Influenza B, PCR Not Detected (NotDetected); Mycoplasma Pneumoniae, PCR Not Detected (NotDetected); Parainfluenza 1, PCR Not Detected (NotDetected); Parainfluenza 2, PCR Not Detected (NotDetected); Parainfluenza 3, PCR Not Detected (NotDetected); Parainfluenza 4, PCR Not Detected (NotDetected); Respiratory Syncytial Virus Not Detected (NotDetected)
[2024-05-23 20:49] LABS: Rhinovirus/Enterovirus Detected (NotDetected)
== END 2024-05-23 23:59 | disposition home or self-care (01) ==
LOC: LAB.DROPOF 05-24 09:40
PROVIDERS: PCP Nurse Practitioner Family; Visit Provider Nurse Practitioner Family
DX: J32.9 Chronic sinusitis, unspecified (principal); J02.9 Acute pharyngitis, unspecified; R05.9 Cough, unspecified; Z20.822 Contact with and (suspected) exposure to COVID-19
CPT/HCPCS: 87265; 87486; 87581; 87632; 87635

== ENCOUNTER 2024-07-25 11:07 | Outpatient (CLI) | payer MEDICARE, OTHER, SELFPAY ==
--- NOTE | 2024-07-25 11:10 | XR_ITS ---
FINAL REPORT CLINICAL HISTORY: Right knee pain COMPARISON: None FINDINGS: Two views of the right knee were obtained. There is no evidence of fracture or dislocation. The bony alignment is normal. There are mild degenerative changes. There is a small joint effusion. Mild vascular calcifications are noted. IMPRESSION: Small joint effusion and degenerative changes without acute bony abnormality. Reviewed, Interpreted and Dictated by Keven Noriega III, MD Transcribed by Rosalia Pierre Authenticated and [facility]
== END 2024-07-25 23:59 | disposition home or self-care (01) ==
LOC: RAD 11:08
PROVIDERS: PCP Internal Medicine; Visit Provider Internal Medicine
DX: M25.561 Pain in right knee (principal)
CPT/HCPCS: 73560

== ENCOUNTER 2025-04-22 09:52 | Outpatient (CLI) | payer MEDICARE, OTHER, SELFPAY ==
[2025-04-23 09:41] LABS: Appearance,Body Fld. Slightly cloudy; Source, Body Fld. Synovial; Volume,Body Fld. 33 mL
[2025-04-23 09:47] LABS: TNC,Body Fluid 124 cells/uL (< 1000)
[2025-04-23 09:48] LABS: RBC,Body Fluid 1000 cells/uL (< 10 X 10^3)
[2025-04-23 11:22] LABS: Mononuclear WBCs,Body Fluid 32 %; Polynuclear WBC,Body Fluid 68 %
[2025-04-24 13:18] LABS: Clarity,Fluid Clear (Clear); Color,Fluid Yellow (Yellow); Eosinophils,Fluid 0 % (Not Estab.); Lymphocytes,Fluid 7 % (Not Estab.); Macrophages,Fluid 34 % (Not Estab.); Nucleated cells, Syn. Fluid 73 cells/uL (0-200); Polys,Fluid 59 % (Not Estab.); RBC,Fluid Rare /uL (Not Estab.)
== END 2025-04-22 23:59 | disposition home or self-care (01) ==
LOC: LAB.DROPOF 04-24 09:53
PROVIDERS: Orthopaedic Surgery; PCP Internal Medicine; Visit Provider Physician Assistant Surgical
DX: M25.461 Effusion, right knee (principal)
CPT/HCPCS: 87070; 87205; 89051; 89060

== ENCOUNTER 2025-05-02 10:47 | Outpatient (CLI) | payer MEDICARE, OTHER, SELFPAY ==
--- OUTSIDE RECORDS SUMMARY | 2025-05-02 10:51 | XMS_ITS | Encounter Summary ---
Author Organization [employer] ([place], [place], [place], [place]) Address [address] [place] [address] Care Team Providers Care Loan Examiner Name Role Phone Unavailable Primary Care Provider Unavailabl e Encounter Details Date Type Department Care Team (Late st Contact Info) Description 12/20/2018 Transcribed Document [facility] [place] Family Medicine [address] [place] [address] ProviderMagdiel MD [address] [place] [address] Social History Tobacco Use Types Packs/Day Years Used Date Smoking Tobacco: Never Assessed Sex and Gender Information Value Date Recorded Sex Assigned at Male 02/09/2022 5:11 PM CDT Legal Sex Male 5:11 PM CDT Gender Identity Male 02/09/2022 5:11 PM CDT Sexual Orientation Not on file documented as of this encounter Miscellaneous Notes * Cerner Conversion Note - Magdiel ProviderMD - 12/20/2018 4:47 PM CDT [facility] PreOp Summary Primary Physician: MAURICIO BARAJAS MD Finalized Date/Time: 12/21/18 07:48:21 Pt. Name: ANUP GEE /Sex: 1935 Male Med Rec #: [id number] Physician: MAURICIO BARAJAS MD Financial #: [id number] Pt. Type: O Room/Bed: [facility]/ Admit/Disch: 12/20/18 13:47:00 - 12/20/18 18:25:00 Institution: [facility] [place] PreOp Case Times Entry 1 In Preop 12/20/18 13:50:00 Ready for Holding n/a Room Patient Ready for 12/20/18 15:01:00 Surgery Patient Out of Preop 05/08/19 16:30:00 Patient Out of n/a Holding Room Last Modified By: ELIEL CROWDER 12/21/18 07:48:20 [facility] PreOp Case Times Audit 12/21/18 07:48:20 Medicaid Specialist: [id number] Modifier: [email or web address] <+> 1 Patient Out of Preop Finalized By: ELIEL CROWDER Document Signatures Signed By: ELIEL CROWDER 12/21/18 07:48 documented in this encounter Plan of Treatment Not on file documented as of this encounter Visit Diagnoses Not on filedocumented in this encounter
--- OUTSIDE RECORDS SUMMARY | 2025-05-02 10:51 | XMS_ITS | Referral Summary ---
Author Organization [employer] ([place], [place], [place], [place]) Address [address] [place] [address] Care Team Providers Care Shield Runner Name Role Phone Unavailable Primary Care Provider Unavailabl e Social History Tobacco Use Types Packs/Day Years Used Date Smoking Tobacco: Never Assessed Sex and Gender Information Value Date Recorded Sex Assigned at Male 02/09/2022 5:11 PM CDT Legal Sex Male 5:11 PM CDT Gender Identity Male 02/09/2022 5:11 PM CDT Sexual Orientation Not on file Plan of Treatment Not on file
--- OUTSIDE RECORDS SUMMARY | 2025-05-02 10:51 | XMS_ITS | Encounter Summary ---
Author Organization [employer] ([place], [place], [place], [place]) Address [address] [place] [address] Care Team Providers Care Blanket Cutting Machine Operator Name Role Phone Unavailable Primary Care Provider Unavailabl e Encounter Details Date Type Department Care Team (Late st Contact Info) Description 12/20/2018 Transcribed Document [facility] [place] Family Medicine [facility] [place] [address] ProviderMagdiel MD [place] [address] Social History Tobacco Use Types Packs/Day Years Used Date Smoking Tobacco: Never Assessed Sex and Gender Information Value Date Recorded Sex Assigned at Male 02/09/2022 5:11 PM CDT Legal Sex Male 5:11 PM CDT Gender Identity Male 02/09/2022 5:11 PM CDT Sexual Orientation Not on file documented as of this encounter Miscellaneous Notes * [employer]ner Conversion Note - Historical ProviderMD - 12/20/2018 6:08 PM CDT DATE OF PROCEDURE: 12/20/2018 SURGEON: Katerin Lincoln M.D. [employer] TEACHER: Lg Lara M.D. (R). PREOPERATIVE DIAGNOSIS(ES): Rhegmatogenous retinal detachment, single break left eye. POSTOPERATIVE DIAGNOSIS(ES): Rhegmatogenous retinal detachment, single break left eye. PROCEDURE: 1. Scleral buckle with 41 band and 70 sleeve, left eye. 2. Pars plana vitrectomy, left eye. 3. Endolaser, left eye. 4. Fluid-air exchange, left eye. 5. Air-gas exchange with 30% SF6 gas, left eye. COMPLICATIONS: None. BLOOD LOSS: Less than 1 mL. ANESTHESIA: MAC with retrobulbar block. INDICATIONS FOR PROCEDURE: Mr. Jamey Gee is a pleasant gentleman, who is currently being followed by the Retina Service. He had recently underwent partial vitrectomy to repair the macular hole in his left eye. He is being seen postoperatively at which time, he was noted to have detachment in his left eye. Given these findings of rhegmatogenous retinal detachment with vision down to the level of hand motions, risks, benefits, and alternatives to combined buckle and vitrectomy to repair his retinal detachment were discussed with the patient. Risks of surgery including 1 in 1000 risk of anesthesia, 1 in 1000 risk of infection in the eye, 2% risk of retinal detachment, the risk of cataract progression as well as reportable risk of intraocular and extraocular hemorrhage that could theoretically lead to loss of the eye as well as loss of vision were discussed at length with the patient. After this long discussion, the patient did wish to proceed with surgery. Informed consent was obtained. DESCRIPTION OF PROCEDURE: The patient was met in the preoperative holding area, where his identity was confirmed and his procedural eye, was his left eye was marked. He was then taken back to the operating room, where after a time-out, a retrobulbar block was administered around the left eye. Following this, the patient was prepped and draped in a typical fashion for sterile ophthalmic surgery of the left eye. After a second time-out, a 360 degree limbal conjunctival peritomy was completed. Next, tenotomy scissors were used to bluntly dissect the tenon from each of the oblique quadrants. A muscle hook was then used to grasp each of the rectus muscles, which were tied off with silk suture. The 41 band scleral buckle was then passed underneath each of the rectus muscle until both ends met in the superior nasal quadrant. They were then passed through a #72 sleeve and the buckle was tightened down to the appropriate height. Next, 5-0 M[address] was used to place a stay suture on the buckle in the mattress fashion approximately 3.5 mm posterior to the rectus muscle insertions in each of the oblique quadrants. Attention was then turned back to the ends of the buckle, which were trimmed appropriately. This concluded the scleral buckling portion of the procedure. The trocar cannula system for pars plana vitrectomy was then placed in the standard fashion for a phakic patient in the left eye. The infusion line was placed through the inferotemporal cannula and noted to be in good position in the vitreous before being initiated. The light pipe was introduced through one of the superior cannulas and at this point, did confirm a rhegmatogenous retinal detachment of the left eye. There is small amount of residual gas left in the eye which was removed with the vitrectomy handpiece. The view at this point was somewhat difficult due to lens severing from the patient's previous procedure; however there was enough of an adequate view to remove any residual peripheral vitreous which was minimal. The causative tear of the attachment was noted to be at approximately 3 o'clock on scleral depression. There were no other tears will detachment or scleral depression. The diathermy was introduced into the eye and used to marisol the retinal break. Next, a soft tip cannula was introduced into the eye and used to perform a fluid-air exchange while draining subretinal fluid from the retinal break, this caused the retina to flatten down nicely. Because of the difficulty with view, it was not felt that endolaser could be placed and therefore the decision was made to use the indirect laser. The view with the indirect laser was adequate and good barricade laser was placed on the breaks at 3 o'clock. Additionally, laser was placed on the buckle from approximately 3 o' clock to 8 o' clock in standard fashion. Next, an air-gas exchange was performed with 30% SF6 gas through the infusion line. All cannulas removed. The sclerotomy sites were closed with 6-0 plain gut suture until they were gas tight. There was a small amount of loss of gas from the eye during closure and therefore the 30% SF6 placed on a 30-gauge needle and used to reinflate the eye to a pressure of approximately 15, which did hold nicely. Next, the silk suture grasping the rectus muscles cut the rectus muscles were released. Conjunctiva was brought back to the limbus sutured down with 6-0 plain gut suture. Subconjunctival injections of antibiotic and steroid were then given. The eyelid speculum was then removed. The drapes were then removed. Ointment was placed into the eye and the eye was patched and shielded. The patient was sent to the recovery area in stable condition having tolerated the procedure well. A fully trained register clerk was available for the duration of the procedure to assist with the technically challenging components of the case including lens manipulation and scleral depression. Lg Lara MD (r) Dict: 12/20/2018 18:08:13 Trans: 12/20/2018 23:29:59 CC1: Lg Lara MD (r) Electronically signed by Barbie, [facility] Conversion Sign Writer Letterer Or Painter Cerner at 12/03/2022 9:30 AM CDT documented in this encounter Plan of Treatment Not on file documented as of this encounter Visit Diagnoses Not on filedocumented in this encounter
--- OUTSIDE RECORDS SUMMARY | 2025-05-02 10:51 | XMS_ITS | Encounter Summary ---
Author Organization [employer] ([place], [place], [place], [place]) Address [address] [place] [address] Care Team Providers Care Auto Service Representative Name Role Phone Unavailable Primary Care Provider Unavailabl e Encounter Details Date Type Department Care Team (Late st Contact Info) Description 12/20/2018 Transcribed Document [facility] Family Medicine [address] [place] [address] ProviderMagdiel MD [address] [place] [address] Social History Tobacco Use Types Packs/Day Years Used Date Smoking Tobacco: Never Assessed Sex and Gender Information Value Date Recorded Sex Assigned at Male 02/09/2022 5:11 PM CDT Legal Sex Male 5:11 PM CDT Gender Identity Male 02/09/2022 5:11 PM CDT Sexual Orientation Not on file documented as of this encounter Miscellaneous Notes * Cerner Conversion Note - Magdiel Mclaughlin MD - 12/20/2018 5:57 PM CDT Patient Education Materials Follows: General Anesthesia, Adult, Care After These instructions provide you with information about caring for yourself after your procedure. Your health care provider may also give you more specific instructions. Your treatment has been planned according to current medical practices, but problems sometimes occur. Call your health care provider if you have any problems or questions after your procedure. What can I expect after the procedure? After the procedure, it is common to have: ??? Vomiting. ??? A sore throat. ??? Mental slowness. It is common to feel: ??? Nauseous. ??? Cold or shivery. ??? Sleepy. ??? Tired. ??? Sore or achy, even in parts of your body where you did not have surgery. Follow these instructions at home: For at least 24 hours after the procedure:??? Do not: ? Participate in activities where you could fall or become injured. ? Drive. ? Use heavy machinery. ? Drink alcohol. ? Take sleeping pills or medicines that cause drowsiness. ? Make important decisions or sign legal documents. ? Take care of children on your own. ??? Rest. Eating and drinking ??? If you vomit, drink water, juice, or soup when you can drink without vomiting. ??? Drink enough fluid to keep your urine clear or pale yellow. ??? Make sure you have little or no nausea before eating solid foods. ??? Follow the diet recommended by your health care provider. General instructions ??? Have a responsible adult stay with you until you are awake and alert. ??? Return to your normal activities as told by your health care provider. Ask your health care provider what activities are safe for you. ??? Take gjyr-ras-ceuokre and prescription medicines only as told by your health care provider. ??? If you smoke, do not smoke without supervision. ??? Keep all follow-up visits as told by your health care provider. This is important. Contact a health care provider if: ??? You continue to have nausea or vomiting at home, and medicines are not helpful. ??? You cannot drink fluids or start eating again. ??? You cannot urinate after 8?12 hours. ??? You develop a skin rash. ??? You have fever. ??? You have increasing redness at the site of your procedure. Get help right away if: ??? You have difficulty breathing. ??? You have chest pain. ??? You have unexpected bleeding. ??? You feel that you are having a life-threatening or urgent problem. This information is not intended to replace advice given to you by your health care provider. Make sure you discuss any questions you have with your health care provider. Document Released: 11/07/2001 Document Revised: 01/03/2017 Document Reviewed: 07/15/2016 Elsevier Interactive Patient Education ? 2017 [employer] documented in this encounter Plan of Treatment Not on file documented as of this encounter Visit Diagnoses Not on filedocumented in this encounter
--- OUTSIDE RECORDS SUMMARY | 2025-05-02 10:51 | XMS_ITS | Encounter Summary ---
Author Organization [employer] ([place], [place], [place], [place]) Address [address] [place] [address] Care Team Providers Care Flow Nurse Name Role Phone Unavailable Primary Care Provider Unavailabl e Encounter Details Date Type Department Care Team (Late st Contact Info) Description 12/20/2018 Transcribed Document [facility] [place] Family Medicine [facility] [place] [place] [address] ProviderMagdiel MD [facility] [place] [address] Social History Tobacco Use Types [...] Conversion Note - Historical ProviderMD - 12/20/2018 2:21 PM CDT Pre Procedure Adult Entered On: 12/20/2018 14:29 EDT Performed On: 12/20/2018 14:21 EDT by María Marroquin Rn Height and Weight, Clinical Dosing Height Source : Stated Height Entry Format : [place] Height, Feet : 5 ft(Converted to: 152 cm, 60 Inch) Height, Inches : 9 Inch(Converted to: 0 ft 9 Inch, 22.86 cm) Clinical Height : 175.26 cm Weight Source : Standing scale Weight Entry Format : [place] Clinical Dosing Weight : 79.55 kg Weight, Pounds : 175 lb Body Surface Area (BSA) : 1.95 m2 Body Mass Index : 25.9 kg/m2 (HI) [place] Body Weight : 70 kg María Marroquin Rn - 12/20/2018 14:21 EDT Health Histories Smoking Status : Former smoker, quit more than 30 days ago Smokeless Tobacco Status : Never María Marroquin Rn - 12/20/2018 14:21 EDT Social History (As Of: 12/20/2018 14:29:10 EDT) Infectious Disease History Infectious Disease History : None Fever/Chills Last 48 Hours : No Travel To Regions with Travel Advisories : No Travel Outside [place] Within Last 30 Days : No Contact With Traveler to Advisory Region : No Tuberculosis Symptoms : None María Marroquin Rn - 12/20/2018 14:21 EDT Anesthesia/Transfusion History Family History of Anesthesia Reaction : No prior transfusion(s) Transfusion History : Prior anesthesia without reaction Family History of Anesthesia Reaction : None María Marroquin Rn - 12/20/2018 14:21 EDT Functional Assessment Living Situation : Home Patient Lives With : Spouse Persons Assisting Patient at Home : Spouse Sensory Deficits : None Mobility Assistance Prior to Admission : Independent ALANIZ Hx Falls Immediate/Within 3 Months : No Current Home Treatments : None María Marroquin Rn - 12/20/2018 14:21 EDT Psychosocial History Currently in Unsafe Situation : No Tried to Harm Yourself in the Past? : No Thoughts of Harming/Killing Yourself : No María Marroquin Rn - 12/20/2018 14:21 EDT Advance Directive Patient has Advance Directive *Q : Yes, Advance Directive not with the patient Advance Directive Type : Living will Copy Advance Directive Verified/on Chart : No Advance Directive Comment : with in waiting room María Marroquin Rn - 12/20/2018 14:21 EDT Spiritual/Cultural Needs Any Spiritual/Cultural Needs or Requests : No María Marroquin Rn - 12/20/2018 14:21 EDT Teaching/Learning Assessment Barriers To Learning : None evident Individuals Taught : Patient Readiness to Learn : Cooperative Baseline Knowledge of Topic : Comprehensive Readiness to Learn : Explanation Learning Style Preferences Patient : Verbal explanation Learning Style Preferences Family : Verbal explanation María Marroquin Rn - 12/20/2018 14:21 EDT General Info Arrived From : Home Mode of Arrival on Unit : Ambulatory Want Family/Rep/Phys Notified of Admit : No Emergency Contact #1 : la gee Emergency Contact #1 Emergency Contact #1 Relationship : Emergency Contact #2 : Emergency Contact #2 Phone Number : Emergency Contact #2 Relationship : Primary Language : Armenian Communication Barrier : None María Marroquin Rn - 12/20/2018 14:21 EDT Sleep Apnea Risk Assmt Hx of Obstructive Sleep Apnea Diagnosis : No Snore Loudly : No Tired, Fatigued, or Sleepy During Day : No Observed Stopping Breathing During Sleep : No Have/Are Being Treated for Hypertension : No BMI Greater Than 35 kg/m2 : No Age over 50 Years Old : Yes Neck Circumference Greater Than 40 cm : No Gender Male : Yes STOP-BANG Sleep Apnea Risk Level Score : 2 María Marroquin Rn - 12/20/2018 14:21 EDT Derek Scale Derek Sensory Perception : No impairment Derek Moisture : Rarely moist Derek Activity : Walks frequently Derek Mobility : No limitation Derek Nutrition : Excellent Derek Friction and Shear : No apparent problem Derek Score : 23 María Marroquin Rn - 12/20/2018 14:21 EDT Oxygen Therapy Oxygen Therapy Mode : Room air María Marroquin Rn - 12/20/2018 14:21 EDT Pain Assessment Pain Assessment : Initial assessment Pain Scale Used : 0-10 Scale María Marroquin Rn - 12/20/2018 14:21 EDT Fall Risk Scales ABCs Fall Injury Risk Identification : None ALANIZ Hx Falls Immediate/Within 3 Months : No Alaniz Secondary Diagnosis : No ALANIZ Use of Ambulatory Aid : None ALANIZ IV Therapy or IV Access : Yes Alaniz Gait/Transferring : Normal, bedrest, immobile Alaniz Mental Status : Oriented to own ability Alaniz Fall Risk Score : 20 ALANIZ Fall Scale Risk Level : 0-24 Low Risk [place] Fall Interventions : Adequate lighting, Bed in low position, Non-slip footwear, Personal items within reach, Reinforced to call for assistance before getting out of bed, Room free of clutter/spills, Upper side-rails up, Wheels locked, Wires/Cords secured María Marroquin Rn - 12/20/2018 14:21 EDT Education Topics, Day of Surgery DayofSurgery Education Grid Anesthesia/Sedation : Verbalizes understanding IV's : Verbalizes understanding Medication Instructions : Verbalizes understanding Pain Management : Verbalizes understanding María Marroquin Rn - 12/20/2018 14:21 EDT Valuables and Belongings Valuables and Belongings : Clothing, Personal items Clothing : Common streetwear Clothing Disposition : With family Personal Items : Wallet Personal Items Disposition : With family María Marroquin, Ashia - 12/20/2018 14:21 EDT Pain Scale Intensity : 0 María Marroquin, Ashia - 12/20/2018 14:21 EDT Image 4 - Images currently included in the form version of this document have not been included in the text rendition version of the form. [place] Coma [place] Best Motor Response : Obey commands Janak Best Verbal Response : Oriented [place] Eye Opening Response : Spontaneous Janak Coma Score : 15 María Marroquin Rn - 12/20/2018 14:21 EDT documented in this encounter Plan of Treatment Not on file documented as of this encounter Visit Diagnoses Not on filedocumented in this encounter
--- OUTSIDE RECORDS SUMMARY | 2025-05-02 10:52 | XMS_ITS | Clinical Summary ---
Author Organization [employer] ([place], [place], [place], [place]) Address [address] [place] [address] Care Team Providers Care Credit Review Officer Name Role Phone Unavailable Primary Care Provider [...]
--- OUTSIDE RECORDS SUMMARY | 2025-05-02 10:52 | XMS_ITS | Encounter Summary ---
Author Organization [employer] ([place], [place], [place], [place]) Address [address] [place] [address] Care Team Providers Care Sales Program Manager Name Role Phone Unavailable Primary Care Provider Unavailabl e Encounter Details Date Type Department Care Team (Late st Contact Info) Description 12/20/2018 Transcribed Document [facility] [place] [address] ProviderMagdiel MD [place] [address] Social History Tobacco Use Types [...] Magdiel ProviderMD - 12/20/2018 4:47 PM CDT [facility] [place] Main OR IntraOp Summary Primary Physician: MAURICIO BARAJAS MD Finalized Date/Time: 12/21/18 09:46:01 Pt. Name: ANUP GEE /Sex: 1935 Male Med Rec #: [id number] Physician: MAURICIO BARAJAS MD Financial #: [id number] Pt. Type: O Room/Bed: [facility] Admit/Disch: 12/20/18 13:47:00 - 12/20/18 18:25:00 Institution: [facility] [place] IntraOp Case Attendance Entry 1 Entry 2 Entry 3 Case Attendee MAURICIO BARAJAS MD Davis, Aleitha E, RN Meme Morales, Paper Folding Machine Operator Role Performed Surgeon/Proceduralist, House Piping Inspector, First Scrub, First First Time In 12/20/18 16:53:00 12/20/18 16:32:00 12/20/18 16:32:00 Time Out 12/20/18 18:03:00 12/20/18 18:03:00 12/20/18 18:03:00 Procedure Vitrectomy Pars Plana Vitrectomy Pars Plana Vitrectomy Pars Plana 25 Gauge, Scleral 25 Gauge, Scleral 25 Gauge, Scleral Buckling Buckling Buckling Other Attendee Superficial Wound Closed By: Last Modified By: Weston Araujo, Weston Li, Weston Li, TUYET 12/20/18 18:04:21 12/20/18 18:04:21 12/20/18 18:04:21 Entry 4 Entry 5 Entry 6 Case Attendee JULIETA CLAY, SOCIAL SERVICES VICENTA SUAZO, SOCIAL SERVICES URBAN KEEN MD Role Performed SOCIAL SERVICES/Nurse Seed Core Operator SOCIAL SERVICES/Nurse Seed Core Operator Surgeon/Proceduralist, Second Time In 12/20/18 16:32:00 12/20/18 16:44:00 12/20/18 16:32:00 Time Out 12/20/18 16:45:00 12/20/18 17:14:00 12/20/18 18:03:00 Procedure Vitrectomy Pars Plana Vitrectomy Pars Plana Vitrectomy Pars Plana 25 Gauge, Scleral 25 Gauge, Scleral 25 Gauge, Scleral Buckling Buckling Buckling Other Attendee Superficial Wound Closed By: Last Modified By: Weston Araujo RN Davis, Aleitha E, Weston Li RN 12/20/18 18:04:21 12/20/18 18:04:21 12/20/18 18:04:21 Entry 7 Case Attendee Ton Marie MD Role Performed Anesthesiologist Time In 12/20/18 17:14:00 Time Out 12/20/18 18:03:00 Procedure Vitrectomy Pars Plana 25 Gauge, Scleral Buckling Other Attendee Superficial Wound Closed By: Last Modified By: Weston Araujo RN 12/20/18 18:04:21 [facility] IntraOp Case Attendance Audit 12/20/18 18:04:21 Field Marketing Representative: LISSETTE Modifier: LISSETTE 1 <+> Time Out 1 <*> Procedure Vitrectomy Pars Plana 25 Gauge, Scleral Buckling 2 <+> Time Out 2 <*> Procedure Vitrectomy Pars Plana 25 Gauge, Scleral Buckling 3 <+> Time Out 3 <*> Procedure Vitrectomy Pars Plana 25 Gauge, Scleral Buckling 4 <*> Procedure Vitrectomy Pars Plana 25 Gauge, Scleral Buckling 5 <*> Procedure Vitrectomy Pars Plana 25 Gauge, Scleral Buckling 6 <+> Time Out 6 <*> Procedure Vitrectomy Pars Plana 25 Gauge, Scleral Buckling 7 <+> Time Out 7 <*> Procedure Vitrectomy Pars Plana 25 Gauge, Scleral Buckling 12/20/18 17:51:09 Field Marketing Representative: ALEITHADAVIS Modifier: ALEITHADAVIS 5 <+> Time Out 5 <*> Procedure Vitrectomy Pars Plana 25 Gauge, Scleral Buckling <+> 7 Case Attendee <+> 7 Role Performed <+> 7 Time In <+> 7 Procedure 12/20/18 17:08:18 Field Marketing Representative: ALEITHADAVIS Modifier: ALEITHADAVIS 1 <*> Procedure Vitrectomy Pars Plana 25 Gauge, Scleral Buckling 2 <*> Procedure Vitrectomy Pars Plana 25 Gauge, Scleral Buckling 3 <*> Procedure Vitrectomy Pars Plana 25 Gauge, Scleral Buckling 4 <+> Time Out 4 <*> Procedure Vitrectomy Pars Plana 25 Gauge, Scleral Buckling 5 <*> Procedure Vitrectomy Pars Plana 25 Gauge, Scleral Buckling 6 <+> Time In 6 <*> Procedure Vitrectomy Pars Plana 25 Gauge, Scleral Buckling 12/20/18 16:53:32 Field Marketing Representative: ALEITHADAVIS Modifier: ALEITHADAVIS 1 <*> Time In 12/20/18 16:32:00 1 <+> Procedure <+> 6 Case Attendee <+> 6 Role Performed <+> 6 Procedure 12/20/18 16:50:09 Field Marketing Representative: ALEITHADAVIS Modifier: ALEITHADAVIS <+> 1 Time In 2 <+> Time In 2 <*> Procedure Vitrectomy Pars Plana 25 Gauge, Scleral Buckling 3 <+> Time In 3 <*> Procedure Vitrectomy Pars Plana 25 Gauge, Scleral Buckling 4 <+> Time In 4 <*> Procedure Vitrectomy Pars Plana 25 Gauge, Scleral Buckling <+> 5 Case Attendee <+> 5 Role Performed <+> 5 Time In <+> 5 Procedure 12/20/18 16:14:07 Field Marketing Representative: ALEITHADAVIS Modifier: ALEITHADAVIS <+> 4 Case Attendee <+> 4 Role Performed <+> 4 Procedure [facility] IntraOp Case Times Entry 1 Patient In Room Time 12/20/18 16:32:00 Out Room Time 12/20/18 18:03:00 Anesthesia Start Time 12/20/18 16:32:00 Stop Time 12/20/18 18:03:00 Anesthesia Ready 12/20/18 16:32:00 Surgery / Procedure Times Start Time 12/20/18 16:47:00 Stop Time 12/20/18 18:01:00 Last Modified By: Weston Araujo RN 12/20/18 18:04:20 [facility] IntraOp Case Times Audit 12/20/18 18:04:20 Field Marketing Representative: ALEITHADAVIS Modifier: ALEITHADAVIS <+> 1 Out Room Time <+> 1 Stop Time 12/20/18 18:01:58 Field Marketing Representative: ALEITHADAVIS Modifier: ALEITHADAVIS <+> 1 Stop Time [facility] IntraOp Communication Entry 1 Communication To Family/Significant other Comment COMMUNICATION BOARD Communication By Weston Araujo RN Date and Time 12/20/18 16:51:00 Last Modified By: Weston Araujo RN 12/20/18 16:51:03 [facility] IntraOp Counts Verification Entry 1 Procedure Vitrectomy Pars Plana 25 Gauge, Scleral Buckling Count Info Count Type Sharps Counts Verification Baseline/pre-procedure Sequence Count Results Correct, surgeon notified Counts Performed By Count Performed By Meme Morales, (Scrub) Paper Folding Machine Operator Count Performed By Weston Araujo RN (RN) Last Modified By: Weston Araujo RN 12/20/18 16:01:56 [facility] IntraOp Counts Final Entry 1 Procedure Vitrectomy Pars Plana 25 Gauge, Scleral Buckling Final Count Info Count Type Sharps Counts Verification Skin Closure/end of Sequence procedure Count Results Correct, surgeon notified Counts Performed By Count Performed By Meme Morales (Scrub) Paper Folding Machine Operator Count Performed By Weston Araujo RN (RN) Last Modified By: Weston Araujo RN 12/20/18 17:53:52 [facility] IntraOp Counts Final Audit 12/20/18 17:53:52 Field Marketing Representative: LISSETTE Modifier: MICHELITHADAVIS 1 <*> Procedure Vitrectomy Pars Plana 25 Gauge, Scleral Buckling 1 <+> Count Performed By (Scrub) 1 <+> Count Performed By (RN) [facility] IntraOp Delays Entry 1 Delay Reason Surgeon late - at office Duration 32 Minute(s) Last Modified By: Weston Araujo RN 12/20/18 16:51:17 [facility] IntraOp Departure from OR Entry 1 Integumentary Assessment Integumentary WDL Assessment WDL Patient's Normal PRNU Integumentary Variance(s) Transfer/Handoff Transfer to Ambulatory unit, Phase II Handoff Method Bedside/Face to face Post-op Transport Stretcher/Gurney Via Patient Transport Weston Araujo RN Accompanied by Last Modified By: Weston Araujo RN 12/20/18 16:13:54 [facility] IntraOp Dressing and Packing Entry 1 Type Dressing Location LEFT EYE Wound Dressing Item Eye Pad, Eye Shield Applied By MAURICIO BARAJAS MD Other Comments PAPER TAPE Last Modified By: Weston Araujo RN 12/20/18 16:11:15 [facility] IntraOp Fire Risk Assessment Entry 1 Fire Info Surgical Site or 1- Yes Incision Above the Xyphoid Open O2 Source 1- Yes (Mask or Cannula) Available Ignition 1- Yes (ESU, Laser, Light Source) Fire Risk 3 Assessment Score Fire Score Fire Risk Yes Assessment Complete Fire Risk Weston Araujo RN Assessment Verified By Fire Risk 12/20/18 16:02:00 Assessment Verified Date/Time Fire Risk High Risk Protocol Yes Implemented Standard Fire Yes Safety Precautions Followed Last Modified By: Weston Araujo RN 12/20/18 16:02:10 [facility] IntraOp General Case Dance Artist 1 Case Information OR OR 08 [facility] [place] Case Level 1 Room Verified Yes Wound Class I - Clean Specialty SN Ophthalmology Anesthesia Type MAC ASA Class 2 Diagnosis Preop Diagnosis LEFT RETINAL DETACHMENT Postop Same As Preop Yes Postop Diagnosis LEFT RETINAL DETACHMENT Last Modified By: Weston Araujo RN 12/20/18 16:50:47 [facility] IntraOp General Case Data Audit 12/20/18 16:50:47 Field Marketing Representative: LISSETTE Modifier: ALEITHADAVIS <+> 1 ASA Class <+> 1 Postop Same As Preop <+> 1 Preop Diagnosis <+> 1 Postop Diagnosis [facility] IntraOp Implant Log Entry 1 Entry 2 Type Implant (Synthetic) Implant (Synthetic) Implant Log Implant Type Other Other Tissue Implant Type Implant SLV JAMAR 1.00MM IMP RETIN BND Identification [id number] Description Implant Quantity 1 1 Implant Site LEFT EYE LEFT EYE Implant Identification Model Number Implant Identification Serial Number Implant [id number] Identification Lot Number Implant Labtician Ophthalmics Labtician Ophthalmics Identification Component Lab Tech Name: Implant [id number] Identification Catalog Number Implant Size Implant Has an Yes Yes Expiration Date Implant Expiration 02/11/25 11/11/24 Date Wasted Radioactive Material Time Implanted Tissue Implant Continue for Tissue Implant Documentation Tissue Identification Number Graft Prep Per Component Lab Tech Instructions: Tissue Preparation Method: Reconstitution Solution: Reconstitution Solution Lot Number Reconstitution Solution Expiration Date: Thawing Solution Thawing Solution Lot Number Thawing Solution Expiration Date Preparation Materials, Other Preparation Materials, Other Lot Number Preparation Materials, Other Expiration Date Tissue Prepared/Processed By Component Lab Tech Paperwork Completed Implant Type Comment Last Modified By: Weston Araujo RN Davis, Aleitha E, RN 12/20/18 16:53:03 12/20/18 16:53:03 [facility] IntraOp Implant Log Audit 12/20/18 16:53:03 Field Marketing Representative: LISSETTE Modifier: LISSETTE Hoang <+> Implant Identification Description 1 <+> Implant Identification Lot Number 1 <+> Implant Identification Component Lab Tech Name: 1 <+> Implant Expiration Date 1 <*> Implant Site LEFT EYE 1 <*> Implant Quantity 1 1 <+> Implant Identification Catalog Number 1 <*> Implant Type Other 1 <*> Implant Has an Expiration Date Yes 1 <*> Type Implant (Synthetic) 2 <+> Implant Identification Description 2 <+> Implant Identification Lot Number 2 <+> Implant Identification Component Lab Tech Name: 2 <+> Implant Expiration Date 2 <*> Implant Site LEFT EYE 2 <*> Implant Quantity 1 2 <+> Implant Identification Catalog Number 2 <*> Implant Type Other 2 <*> Implant Has an Expiration Date Yes 2 <*> Type Implant (Synthetic) 3 <-> Implant Site LEFT EYE 3 <-> Implant Quantity 1 3 <-> Implant Type Other 3 <-> Implant Has an Expiration Date Yes 3 <-> Type Implant (Synthetic) [facility] IntraOp Intraoperative Assessment Entry 1 Handoff Method Other Valid History / Yes Physical in Chart Preoperative Yes Checklist Reviewed/Evaluated Allergies Reviewed Yes Patient is Latex No Sensitive Isolation Not applicable Precautions Noted Level of WDL Consciousness (WDL = Alert, Oriented to Person, Place, and Time) Skin Assessment Yes Verified Present Upon IVs Arrival to OR Last Modified By: Weston Araujo RN 12/20/18 16:02:21 [facility] IntraOp Intraoperative Equipment Entry 1 Type Equipment Equipment Intraop Monitoring Electrocardiogram Three lead placement (ECG) Electrode Placement Blood Pressure Non-Invasive BP Device Source Antiembolic Devices Scopes Photo/Video Documentation Photo No Video No Last Modified By: Weston Araujo RN 12/20/18 16:04:32 [facility] IntraOp Laser Data/Safety Entry 1 Procedure Vitrectomy Pars Plana 25 Gauge, Scleral Buckling Laser Data Laser Mode Set By Meme Morales Scrub Tech Laser Safety Procedure personnel Measures Included received laser safety information, [place] of water/Saline immediately available, Fire extinguisher location noted, Laser Caution placards placed on all doors, Laser safe instrumentation utilized, Specific laser safety precautions implemented, Rinse prep thoroughly from surgical site, Smoke evacuator tested/used, Suction evacuator with laser filter, Wet towels and sponges used to protect patient and drapes, Windows covered, Laser tested/calibrated, Appropriate eye protection for patient, Appropriate eye protection for staff, Appropriate eye protection for surgeon, Laser safe ET tube as applicable, High-filtration mask available, No flammable liquid around surgical area, Secure laser operation joyce, Implement fire protection measures Last Modified By: Weston Araujo RN 12/20/18 16:05:09 [facility] IntraOp Medication Admin Entry 1 Entry 2 Entry 3 Medication/Irrigant Lidocaine 4% 5 ml Marcaine 0.75% Vitrase 200units/ml - injectable - [id number] 7.5mg/1ml 10ml [id number] injection - [id number] Combo Med List 1 - Combo Med 1 - Combo Med 1 - Combo Med Time Administered Route of LOCAL/PERIBULBAR/RETROBU LOCAL LOCAL Administration LBAR Dose Dose 4.5 4.5 1.0 Unit of Measure ml ml ml Volume 4.5ML 4.5ML 1.0ML Administered By MAURICIO BARAJAS MD SHIRKEY, BELINDA, MD SHIRKEY, MAURICIO, MD Procedure Irrigation Irrigant Volume In Irrigant Volume Out Last Modified By: Weston Araujo RN Davis, Aleitha E, RN Davis, Aleitha E, RN 12/20/18 16:05:42 12/20/18 16:05:42 12/20/18 16:05:42 Entry 4 Entry 5 Entry 6 Medication/Irrigant Ancef 1Gm powder - Decadron 10mg 1ml - BSS 15ml - [id number] Combo Med List Time Administered Route of SUBCONJ SUBCONJ IRRIGATION Administration Dose Dose 0.5 0.5 15 Unit of Measure ml ml ml Volume 0.5ML 10MG/1ML QS Administered By MAURICIO BARAJAS MD SHIRKEY, BELINDA, MD Imbriglio, Rosalie, Paper Folding Machine Operator Procedure Irrigation Irrigant Volume In Irrigant Volume Out Last Modified By: Weston Araujo RN Davis, Aleitha E, Weston Li RN 12/20/18 16:05:42 12/20/18 16:05:42 12/20/18 16:05:42 Entry 7 Entry 8 Entry 9 Medication/Irrigant L[facility]IS OCUCOAT [facility] INJ MAXITROL 3.5 OPTHALMIC BSS Plain 500ml - 1ML SYR --[id number] OINTMENT [id number] Combo Med List Time Administered Route of TOPICAL TOPICAL INTRAOCCULAR Administration Dose Dose 1 500 Unit of Measure ml ml Volume QS QS QS Administered By MAURICIO BARAJAS MD SHIRKEY, BELINDA, MD SHIRKEY, BELINDA, MD Procedure Irrigation Irrigant Volume In Irrigant Volume Out Last Modified By: Weston Araujo RN Davis, Aleitha E, RN Davis, Aleitha E, RN 12/20/18 16:05:42 12/20/18 16:05:42 12/20/18 16:05:42 [facility] IntraOp Patient Positioning Entry 1 Procedure Scleral Buckling Body Position Supine Left Arm Position Resting at side Right Arm Position Resting at side Left Leg Position Uncrossed, parallel Right Leg Position Uncrossed, parallel Position Comments PT REMAINED ON EYE STRETCHER IN BILATERAL WRIST RESTRAINTS WITH PILLOW UNDER KNEES. Feet Uncrossed Yes Pressure Points Yes Checked Positioning Devices Pillows, Soft Cuff Straps Device Position HEAD ON PADDED HEADREST.ARMS ADDUCTED TO SIDES. PILLOW UNDER KNEES. Positioned By Weston Araujo RN, MAURICIO BARAJAS MD Position Verified Positioning Yes Verified by Anesthesia Positioning Yes Verified by Surgeon Last Modified By: Weston Araujo RN 12/20/18 16:05:58 [facility] IntraOp Sign In Entry 1 Patient, Site, Yes Procedure Identified Surgical Consent Yes Confirmed Relevant Surgical Yes Documents Available Surgical Site Yes Marked by person performing procedure Anesthesia Machine Yes Check Completed Medication Checks Yes Completed Allergies Yes Airway Difficult No Airway/Aspiration Risk Difficult Yes Airway/Aspiration Intervention Equipment Available Blood Loss Risk No Blood Loss Yes Intervention Equipment Prepared and Ready Blood Identifiers Not applicable Verified Per Policy Hypothermia Risk Yes Warming Measures Yes Taken Last Modified By: Weston Araujo RN 12/20/18 16:06:47 [facility] Intra Op Sign Out Entry 1 RN Confirmation Surgical Yes Procedure(s) Identified Instrument, Sponge Yes and Sharps Counts Correct/Documented Equipment Problems N/A Documented Specimen Labeled N/A Correctly Urinary Catheter N/A Documented in IView Joyce Patient Yes Recovery Concerns Reviewed with Anesthesia Provider, Surgeon and RN Joyce Patient Yes Management Concerns Reviewed with Anesthesia Provider, Surgeon and RN Safety Checklist Yes Elements Complete? RN Sign Out Weston Araujo RN Signature RN Sign Out 12/20/18 18:02:00 Signature Date/Time Plan of Care Outcome - Fire Risk OUTCOME STATEMENT: Goal met Patient is free from injury related to surgical fire Plan of Care Outcome - Pt Positioning OUTCOME STATEMENT: Goal met Absence of signs and symptoms of positioning injury. Plan of Care Outcome - Skin Prep OUTCOME STATEMENT: Goal met Intraoperative care is consistent with measures to prevent infection Plan of Care Outcome - Xray/Images OUTCOME STATEMENT: N/A Absence of observable signs or symptoms of radiation injury Plan of Care Outcome - Counts OUTCOME STATEMENT: Goal met Absence of signs and symptoms of injury related to extraneous objects Last Modified By: Weston Araujo RN 12/20/18 18:02:01 [facility] Intra Op Sign Out Audit 12/20/18 18:02:01 Field Marketing Representative: LISSETTE Modifier: LISSETTE <+> 1 RN Sign Out Signature Date/Time [facility] IntraOp Skin Prep Entry 1 Procedure Scleral Buckling Prescribed Yes Pre-Surgical Prep Completed Prep Area LEFT EYE Intraop Prep Integumentary WDL Assessment WDL Prep Agents Betadine solution Prep by Weston Araujo RN Skin Prep Comment 5% BETADINE Hair Removal Methods No hair removal performed Last Modified By: Weston Araujo RN 12/20/18 16:07:10 [facility] IntraOp Surgical Procedures Entry 1 Entry 2 Procedure Vitrectomy Pars Plana Scleral Buckling 25 Gauge Modifiers Additional 25 GAUGE VITRECTOMY , Procedure ENDO LASER, SF6 GAS, Description SCLERAL BUCKLE , LEFT EYE Primary Procedure Yes No Primary Surgeon MAURICIO BARAJAS MD SHIRKEY, BELINDA, MD Start 12/20/18 16:47:00 12/20/18 16:47:00 Stop 12/20/18 18:01:00 12/20/18 18:01:00 Physician States Cecum Reached Anesthesia Type MAC General Specialty SN Ophthalmology SN Ophthalmology Wound Class I - Clean I - Clean Last Modified By: Weston Araujo RN Davis, Aleitha E, RN 12/20/18 18:02:01 12/20/18 18:02:01 [facility] IntraOp Surgical Procedures Audit 12/20/18 18:02:01 Field Marketing Representative: LISSETTE Modifier: ALLISONADAVIS <+> 1 Start <+> 1 Stop <+> 2 Start <+> 2 Stop [facility] IntraOp Time Out Entry 1 Procedure to be Vitrectomy Pars Plana Performed 25 Gauge, Scleral Buckling Time Out Time Out Pause Time 12/20/18 16:46:00 All activity Yes suspended (unless life threatening emergency) Team Verbally Correct patient Confirms Information identity, Correct side and site are marked, Consent form is present and accurate, Agreement on the procedure to be done, Correct patient position, Relevant images/results properly labeled/appropriately displayed, Confirm antibiotics have been administered, Confirm the skin prep has dried, Confirm prosthesis/implant/devic e is present, Performed in location of procedure after prepped/draped Antibiotic N/A Prophylaxis Administered Or In Progress Within the Last 60 Minutes Beta Ezequiel N/A Administered Venous Yes Thromboembolism Prophylaxis Required Anticipated Critical Events Surgeon None expected Anesthesia Provider None expected Nursing Assures Sterility of instruments, Implant Availability Essential Imaging Yes Labeled and Displayed Last Modified By: Weston Araujo RN 12/20/18 16:51:30 [facility] IntraOp Time Out Audit 12/20/18 16:51:30 Field Marketing Representative: LISSETTE Modifier: ALEITHADAVIS 1 <+> Beta Ezequiel Administered 1 <+> Time Out Pause Time 1 <*> Procedure to be Performed Vitrectomy Pars Plana 25 Gauge, Scleral Buckling Case Comments <None> Finalized By: Weston Araujo, RN Document Signatures Signed By: Weston Araujo RN 12/20/18 18:04 Weston Araujo RN 12/21/18 09:46 Unfinalized History Date/Time Username Reason for Unfinalizing Freetext Reason for Unfinalizing 12/21/18 09:45 AISHA Modify Pick List S documented in this encounter Plan of Treatment Not on file documented as of this encounter Visit Diagnoses Not on filedocumented in this encounter
--- OUTSIDE RECORDS SUMMARY | 2025-05-02 10:52 | XMS_ITS | Encounter Summary ---
Author Organization [employer] ([place], [place], [place], [place]) Address [address] [place] [address] Care Team Providers Care Radio Producer Name Role Phone Unavailable Primary Care Provider Unavailabl e Encounter Details Date Type Department Care Team (Late st Contact Info) Description 12/20/2018 Transcribed Document [facility] [place] [address] [place] [address] ProviderMagdiel MD [facility] [place] [address] Social History Tobacco Use Types [...] Magdiel ProviderMD - 12/20/2018 4:47 PM CDT [facility] Main OR PostOp Summary Primary Physician: MAURICIO BARAJAS MD Finalized Date/Time: 12/20/18 18:17:23 Pt. Name: ANUP GEE /Sex: 1935 Male Med Rec #: [id number] Physician: MAURICIO BARAJAS MD Financial #: [id number] Pt. Type: O Room/Bed: [facility] Admit/Disch: 12/20/18 13:47:00 - Institution: [facility] Main OR PostOp Case Times Entry 1 In PACU II 12/20/18 18:00:00 Ready for PACU II 12/20/18 18:25:00 Discharge Discharge from PACU 12/20/18 18:25:00 II Last Modified By: Alyssa Chaudhry, RN 12/20/18 18:17:17 [facility] Main OR PostOp Case Times Audit 12/20/18 18:17:17 Elementary Classroom Teacher: [id number] Modifier: [email or web address] <+> 1 Ready for PACU II Discharge <+> 1 In PACU II <+> 1 Discharge from PACU II 12/20/18 15:01:01 Elementary Classroom Teacher: [id number] Modifier: [id number] 1 <-> In PACU II 12/20/18 13:50:00 1 <-> Discharge from PACU II 12/20/18 15:00:00 Finalized By: Alyssa Chaudhry, RN Document Signatures Signed By: Alyssa Chaudhry RN 12/20/18 18:17 documented in this encounter Plan of Treatment Not on file documented as of this encounter Visit Diagnoses Not on filedocumented in this encounter
--- OUTSIDE RECORDS SUMMARY | 2025-05-02 10:52 | XMS_ITS | Encounter Summary ---
Author Organization [employer] ([place], [place], [place], [place]) Address [address] [place] [address] Care Team Providers Care Coater Operator Insulation Board Name Role Phone Unavailable Primary Care Provider Unavailabl e Encounter Details Date Type Department Care Team (Late st Contact Info) Description 12/20/2018 Transcribed Document [facility] [place] [facility] [place] [address] ProviderMagdiel MD [address] [place] [address] Social History Tobacco Use Types [...] Conversion Note - Magdiel ProviderMD - 12/20/2018 6:09 PM CDT [facility] [address] [id number] ANUP SALAMANCA :1935 Visit Time:12/20/2018 What to do next Your Diagnosis Ocular pain, unspecified eye, Ocular pain, unspecified eye Instructions From Your Care Team Keep position as ordered by Dr Lincoln which is Face down Discharge Activity: Discharge Activity: Activity as tolerated Diet: Discharge Diet: Resume usual diet as tolerated Follow-Up Appointments Follow Up with MAURICIO LINCOLN MD When 12/21/2018 11:00 AM EDT Comments Keep scheduled appointment tomorrow with Dr. Lincoln.Then with Dr. Lincoln on 12-28-18 at 3:30pm in [place]. Where: [address] [facility] [address] [place] [address]- Medications What How Much When Instructions Next Dose acetaminophen 500 Milligram(s) Oral Every Day as needed alfuzosin 10 Milligram(s) Oral Every Day azelastine-fluticasone nasal (Dymista) Nasal Two Times A Day finasteride (finasteride 5 mg oral tablet) 5 Milligram(s) Oral Every Day ibuprofen 800 Milligram(s) Oral Every Day levothyroxine (Thyroxine Sodium Pentahydrate) 25 Microgram(s) Oral Every Day multivitamin with minerals (Centrum) 1 Tablet(s) Oral Every Day omeprazole 20 Milligram(s) Oral Every Day sildenafil (Viagra 100 mg oral tablet) 1 Tablet(s) Oral Every Day as needed for for erectile dysfunction as needed simvastatin 40 Milligram(s) Oral Every Day Take your medications faithfully. Do NOT skip medication. Do NOT stop taking medications without the direction of a physician. Carry a list of your medications with you at all times, and take this medication list with you to your first follow up visit. Report any side effects. Avoid herbal remedies unless discussed with your physician. As part of your treatment plan, your physician may have prescribed a limited course of a controlled substance. This medication may be given to help people with moderate or severe pain or for other medical conditions, but there are risks involved with treatment. Common side effects may include nausea, constipation, drowsiness, sweating, itching, dry mouth, and rash. More serious side effects may include cognitive and motor impairment, like problems with thinking, concentrating, alertness, and movement (e.g. slowed reflexes), and driving and operating heavy machinery can be dangerous. It is important for you to talk to your physician if you have these side effects or questions. These controlled substances can produce physical dependence and be habit-forming if taken for an extended period of time, which means that the body has gotten used to them and may experience withdrawal symptoms if they are abruptly stopped. Withdrawal symptoms can include runny nose, sweating, goose bumps, diarrhea, abdominal cramping, rapid heartbeat, difficulty sleeping, and nervousness. Please dispose of unused and medications per pharmacy guidance. Education Materials General Anesthesia, Adult, Care After These instructions [...] For at least 24 hours after the procedure: ??? Do not: ? Participate in activities where [...] activities are safe for you. ??? Take rkhv-pvv-kskwheb and prescription medicines only as told by [...] eating again. ??? You cannot urinate after 8???12 hours. ??? You develop a skin rash. [...] 11/07/2001 Document Revised: 01/03/2017 Document Reviewed: 07/15/2016 [employer] Interactive Patient Education ?? 2017 [employer]. Emergency Awareness and Preventative Care STROKE is an EMERGENCY Every Minute Counts Act FAST and Check for these signs: FACE Does the face look uneven? ARM Does one arm drift down? SPEECH Does their speech sound strange? TIME Call at any sign of stroke Stroke Risk Factors Atrial Fibrillation (irregular heartbeat) Diabetes Family history of stroke Heart Disease Heavy alcohol use High Blood Pressure High Cholesterol Physical inactivity and obesity Smoking Cigarette Smoking The facts are clear, cigarette smoking will shorten your life. Smoking can cause many illnesses along the way. As a healthcare provider, we recommend that you stop smoking. Assistance with quitting is available by contacting 1-129-HLEZAddeparNOW. This is a free resource providing counseling, support, and referral. Or you may contact your personal physician. National Suicide Prevention Lifeline: The National Suicide Prevention Lifeline is a national network of local crisis centers that provides free and confidential emotional support to people in suicidal crisis or emotional distress 24 hours a day, 7 days a week. Don't Wait! Stop a Heart Attack Before it Starts What is a heart attack? A heart attack is damage or to a part of the heart from severely decreased or lack of blood flow to the heart. Over time, arteries can become narrow from the buildup of fat and cholesterol, which is called plaque. The plaque can rupture causing a blood clot to form. When the blood clot forms, the artery can become severely narrowed or completely blocked, causing a heart attack. Heart attack is the leading cause of in the [place]. 85% of muscle damage occurs within the first 2 hours. Delay in the recognition of heart attack symptoms increases the chances of . Know the early symptoms of a heart attack: Nausea Feeling of fullness in chest Jaw Pain Pain that travels down one or both arms Fatigue/being tired Anxiety Back Pain Chest pressure, squeezing, or discomfort Shortness of breath Sweating, or a cold sweat Feeling of impending doom There are unusual signs of a heart attack, too! Women, the elderly, and diabetics may present with atypical symptoms: Fainting/dizziness Weakness Confusion Risk Factors for a Heart Attack Some heart disease risk factors, such as age and family history, cannot be changed. Others, like smoking and lack of exercise, can be changed. Smoking High Cholesterol High Blood Pressure Family History Obesity Age Gender (Males are at higher risk) Lack of Exercise Diabetes Diet Stress Excessive Alcohol Intake If you or someone you know is experiencing the signs and symptoms of a heart attack, DON???T DELAY. Call immediately and seek help. If someone collapses, perform CPR! Do not attempt to drive if you are having symptoms of heart attack. Hands-Only CPR Why Hands-Only CPR? Hands-Only CPR has been shown to be as effective as conventional CPR for cardiac arrests that occur outside of a hospital. Survival depends on immediately receiving CPR from someone nearby. How do you perform Hands-Only CPR? There are two easy steps: Call if you see a teen or adult collapse Push hard and fast in the center of the chest at a beat of 100 beats per minute. Save a life! 4 WAYS TO GET AHEAD OF SEPSIS SEPSIS is a MEDICAL EMERGENCY. Time matters! Infections put you and your family at risk for a life-threatening condition called sepsis. Sepsis is the body's extreme response to an infection. It is life-threatening, and without timely treatment, sepsis can rapidly lead to tissue damage, organ failure, and . Sepsis happens when an infection you already have-in your skin, lungs, urinary tract or somewhere else-triggers a chain reaction throughout your body. 1 PREVENT INFECTIONS Take good care of chronic conditions. Talk to your doctor about getting the recommended vaccines. 2 PRACTICE GOOD HYGIENE Wash your hands frequently. Keep cuts or open sores clean and covered until they are healed. 3 KNOW THE SYMPTOMS Confusion or disorientation Shortness of breath High heart rate Fever, shivering, or feeling very cold Extreme pain or discomfort Clammy or sweaty skin 4 ACT FAST Get medical care IMMEDIATELY if you suspect sepsis or if you have an infection that is not getting better or is getting worse. To learn more about sepsis and how to prevent infections, visit www.cdc.gov/sepsis. Patient Portal Reminder: Be sure to sign up for the [employer] patient portal, which gives you 07/03 access to your medical information ??? including these discharge instructions ??? using your computer, smartphone, or tablet. Just go to [email or web address] to get started. Questions? Call . Test Results Laboratory or Other Results This Visit (last charted value for your 12/20/2018 visit) No Laboratory or Other Results This Visit Patient Name:ANUP SALAMANCA I have received this information and was given the opportunity to ask questions. Patient/Manager Perioperative Name: Patient/Manager Perioperative Signature: Relationship to Patient: Clinician/Hospital Manager Perioperative Signature: Date: documented in this encounter Plan of Treatment Not on file documented as of this encounter Visit Diagnoses Not on filedocumented in this encounter
--- NOTE | 2025-05-02 11:15 | CA_ITS ---
FINAL REPORT TECHNIQUE: Compression figueroa scale and Doppler evaluation CLINICAL HISTORY: Right leg pain, throbbing, with swelling. Previous DVT 2 years ago. @ months post right knee injection FINDINGS: There is echogenic material filling the common femoral vein compatible with near occlusive thrombus favored to be subacute. This extends to involve the superficial femoral veins. The calf veins and popliteal veins are patent. IMPRESSION: Subacute appearing DVT of the common femoral veins and superficial femoral veins of the right lower extremity. Reviewed, Interpreted and Dictated by Jose Villar MD Transcribed by Holly Flores Authenticated and [facility][1]
== END 2025-05-02 23:59 | disposition home or self-care (01) ==
LOC: RT 10:49
PROVIDERS: PCP Internal Medicine; Visit Provider Physician Assistant Surgical
DX: I82.411 Acute embolism and thrombosis of right femoral vein (principal)
CPT/HCPCS: 93971

== ENCOUNTER 2025-05-03 10:45 | Outpatient (CLI) | payer MEDICARE, OTHER, SELFPAY ==
[2025-05-03 13:46] LABS: Hematocrit 40.5 % (42.0-52.0); Hemoglobin 13.9 g/dL (14.1-18.0); Immature Granulocytes % 0.4 %; Mean Corpuscular HGB Conc 34.3 g/dL (31.8-35.4); Mean Corpuscular Hemoglobin 32.1 pg (27.0-31.2); Mean Corpuscular Volume 93.5 fl (80-94); Nucleated Red Blood Cells % 0 %; Platelet Count 163 K/mm3 (142-424); Red Blood Count 4.33 M/mm3 (4.60-6.20); Red Cell Distribution Width-SD 44.8 fL; White Blood Count 5.5 K/mm3 (4.8-10.8)
[2025-05-03 13:52] LABS: Chloride 104 mmol/L (98-107)
[2025-05-03 13:53] LABS: Albumin Level 4.3 g/dl (3.5-5.0); Potassium 4.1 mmoL/L (3.5-5.1); Sodium 139 mmol/L (136-145)
[2025-05-03 13:55] LABS: Blood Urea Nitrogen 21 mg/dl (9-20); Creatinine,Serum 1.20 mg/dl (0.66-1.25); Estimated Glomerular Filt Rate 57 ml/min (>60); GFR (African American) 69 ML/MIN (>60)
[2025-05-03 13:56] LABS: Alanine Aminotransferase 12 U/L (12-78); Albumin/Globulin Ratio 1.7 (1.1-1.8); Alkaline Phosphatase 69 U/L (38-126); Anion Gap 15.1 mEq/L (5-15); Aspartate Amino Transferase 26 U/L (17-59); Bilirubin,Total 0.9 mg/dl (0.2-1.3); Calcium 9.4 mg/dl (8.4-10.2); Carbon Dioxide 24 mmol/L (22.0-30.0); Globulin 2.5 g/dL (1.3-3.2); Glucose 104 mg/dl (74-100); Total Protein,Serum 6.8 g/dl (6.3-8.2)
--- OUTSIDE RECORDS SUMMARY | 2025-05-08 10:48 | XMS_ITS | Encounter Summary ---
Author Organization [employer] ([place], [place], [place], [place]) Address [address] [place] [address] Care Team Providers Care Stove Fitter Name Role Phone Unavailable Primary Care Provider Unavailabl e Encounter Details Date Type Department Care Team (Late st Contact Info) Description 12/20/2018 Transcribed Document [facility] [place] [address] [place] [address] ProviderMagdiel MD [address] [place] [address] Social History Tobacco Use Types [...] GEE /Sex: 1935 Male Med Rec #: [id number] Physician: MAURICIO BARAJAS MD Financial #: [id number] Pt. Type: O Room/Bed: [facility]/ Admit/Disch: 12/20/18 13:47:00 - 12/20/18 18:25:00 [place] [facility] [place] Times Entry 1 In Preop 12/20/18 13:50:00 Ready for Holding n/a Room Patient Ready for 12/20/18 15:01:00 Surgery Patient Out of Preop 05/08/19 16:30:00 Patient Out of n/a Holding Room Last Modified By: ELIEL CROWDER 12/21/18 07:48:20 [facility] PreOp Case Times Audit 12/21/18 07:48:20 Microbiological Lab Technician: [id number] Modifier: [email or web address] <+> 1 Patient Out of Preop Finalized By: ELIEL CROWDER Document Signatures Signed By: ELIEL CROWDER 12/21/18 07:48 documented in this encounter Plan of Treatment Not on file documented as of this encounter Visit Diagnoses Not on filedocumented in this encounter
--- OUTSIDE RECORDS SUMMARY | 2025-05-08 10:48 | XMS_ITS | Encounter Summary ---
Author Organization [employer] ([place], [place], [place], [place]) Address [address] [place] [address] Care Team Providers Care Prescription Clerk Lenses Name Role Phone Unavailable Primary Care Provider Unavailabl e Encounter Details Date Type Department Care Team (Late st Contact Info) Description 12/20/2018 Transcribed Document [facility] [place] [facility] [place] [address] ProviderMagdiel MD [facility] [place] [address] Social History Tobacco Use Types [...] Source : Stated Height Entry Format : Millard Height, Feet : 5 ft(Converted to: 152 cm, 60 Inch) Height, Inches : 9 Inch(Converted to: 0 ft 9 Inch, 22.86 cm) Clinical Height : 175.26 cm Weight Source : Standing scale Weight Entry Format : Millard Clinical Dosing Weight : 79.55 kg Weight, Pounds : 175 lb Body Surface Area (BSA) : 1.95 m2 Body Mass Index : 25.9 kg/m2 (HI) Brandon Body Weight : 70 kg María Marroquin [...] Contact #2 Relationship : Primary Language : Chadian Communication Barrier : None María Marroquin Rn [...] Scale Risk Level : 0-24 Low Risk [place] Fall Interventions : Adequate lighting, Bed in [...] the text rendition version of the form. [place] Coma [place] Best Motor Response : Obey commands Janak Best Verbal Response : Oriented [place] Eye Opening Response : Spontaneous Janak Coma Score : 15 María Marroquin Rn - 12/20/2018 14:21 EDT documented in this encounter Plan of Treatment Not on file documented as of this encounter Visit Diagnoses Not on filedocumented in this encounter
--- OUTSIDE RECORDS SUMMARY | 2025-05-08 10:48 | XMS_ITS | Referral Summary ---
Author Organization [employer] ([place], [place], [place], [place]) Address [address] [place] [address] Care Team Providers Care Continuous Mining Machine Operator Name Role Phone Unavailable Primary [...]
--- OUTSIDE RECORDS SUMMARY | 2025-05-08 10:49 | XMS_ITS | Encounter Summary ---
Author Organization [employer] ([place], [place], [place], [place]) Address [address] [place] [address] Care Team Providers Care Thread Weaver Name Role Phone Unavailable Primary Care Provider Unavailabl e Encounter Details Date Type Department Care Team (Late st Contact Info) Description 12/20/2018 Transcribed Document [facility] [place] [facility] [place] [address] ProviderMagdiel MD [facility] [place] [address] Social History Tobacco Use Types [...] OF PROCEDURE: 12/20/2018 SURGEON: Katerin Lincoln M.D. BONE PULLER: Lg Lara M.D. (R). PREOPERATIVE DIAGNOSIS(ES): Rhegmatogenous [...] tolerated the procedure well. A fully trained thread weaver was available for the duration of the procedure to assist with the technically challenging components of the case including lens manipulation and scleral depression. Lg Lara MD (r) Dict: 12/20/2018 18:08:13 Trans: 12/20/2018 23:29:59 CC1: Lg Lara MD (r) Electronically signed by Barbie, [facility] Conversion Barrel Bung Remover And Dumper Cerner at 12/03/2022 9:30 AM CDT documented in this encounter Plan of Treatment Not on file documented as of this encounter Visit Diagnoses Not on filedocumented in this encounter
--- OUTSIDE RECORDS SUMMARY | 2025-05-08 10:49 | XMS_ITS | Encounter Summary ---
Author Organization [employer] ([place], [place], [place], [place]) Address [address] [place] [address] Care Team Providers Care Breadman Name Role Phone Unavailable Primary Care Provider Unavailabl e Encounter Details Date Type Department Care Team (Late st Contact Info) Description 12/20/2018 Transcribed Document [facility] [place] [address] [place] [address] ProviderMagdiel MD [facility] [address] Social History Tobacco Use Types [...] GEE /Sex: 1935 Male Med Rec #: [id number] Physician: MAURICIO BARAJAS MD Financial #: [id number] Pt. Type: O Room/Bed: [facility] Admit/Disch: 12/20/18 13:47:00 - Institution: [facility] PostOp Case Times Entry 1 In PACU II 12/20/18 18:00:00 Ready for PACU II 12/20/18 18:25:00 Discharge Discharge from PACU 12/20/18 18:25:00 II Last Modified By: Alyssa Chaudhry, RN 12/20/18 18:17:17 [facility] PostOp Case Times Audit 12/20/18 18:17:17 [employer] Etl Developer: [id number] Modifier: [email or web address] <+> 1 Ready for PACU II Discharge <+> 1 In PACU II <+> 1 Discharge from PACU II 12/20/18 15:01:01 [employer] Etl Developer: [id number] Modifier: [id number] <-> In PACU II 12/20/18 13:50:00 1 <-> Discharge from PACU II 12/20/18 15:00:00 Finalized By: Alyssa Chaudhry, RN Document Signatures Signed By: Alyssa Chaudhry RN 12/20/18 18:17 documented in this encounter Plan of Treatment Not on file documented as of this encounter Visit Diagnoses Not on filedocumented in this encounter
--- OUTSIDE RECORDS SUMMARY | 2025-05-08 10:49 | XMS_ITS | Encounter Summary ---
Author Organization [employer] ([place], [place], [place], [place]) Address [address] [place] [address] Care Team Providers Care Manager Continuous Improvement Name Role Phone Unavailable Primary Care Provider Unavailabl e Encounter Details Date Type Department Care Team (Late st Contact Info) Description 12/20/2018 Transcribed Document [facility] [place] [facility] [place] [address] ProviderMagdiel MD [address] [place] [address] Social History Tobacco Use Types [...] Magdiel ProviderMD - 12/20/2018 6:09 PM CDT [facility] [address] [id number] ANUP SALAMANCA :1935 Visit Time:12/20/2018 What to [...] Dr. Lincoln on 12-28-18 at 3:30pm in [place]. Where: [address] [facility] [address] [place] [address]- Medications What How Much When Instructions Next [...] activities are safe for you. ??? Take nouf-vgb-hjnkvfh and prescription medicines only as told by [...] 11/07/2001 Document Revised: 01/03/2017 Document Reviewed: 07/15/2016 [email or web address] Interactive Patient Education ?? 2017 [employer]. Emergency Awareness and Preventative Care STROKE is [...] Assistance with quitting is available by contacting 6-553-LENES&N AirofloNOW. This is a free resource providing counseling, [...] Be sure to sign up for the [employer] patient portal, which gives you 07/03 access to your medical information ??? including these discharge instructions ??? using your computer, smartphone, or tablet. Just go to [email or web address] to get started. Questions? Call . Test Results Laboratory or Other Results This Visit (last charted value for your 12/20/2018 visit) No Laboratory or Other Results This Visit Patient Name:ANUP SALAMANCA I have received this information and was given the opportunity to ask questions. Patient/Meter Maintenance Person Name: Patient/Meter Maintenance Person Signature: Relationship to Patient: Clinician/Hospital Meter Maintenance Person Signature: Date: Electronically signed by Bola Valentin Conversion Geoscience Laboratory Technician Masha at 12/03/2022 9:42 AM CDT documented in this encounter Plan of Treatment Not on file documented as of this encounter Visit Diagnoses Not on filedocumented in this encounter
--- OUTSIDE RECORDS SUMMARY | 2025-05-08 10:49 | XMS_ITS | Encounter Summary ---
Author Organization [email or web address] ([place], [place], [place], [place]) Address [address] [place] [address] Care Team Providers Care Zmt Operator Name Role Phone Unavailable Primary Care Provider Unavailabl e Encounter Details Date Type Department Care Team (Late st Contact Info) Description 12/20/2018 Transcribed Document [facility] [place] Family Medicine Formerly [facility] [place] [address] ProviderMagdiel MD [facility] [place] [address] Social History Tobacco Use Types [...] Magdiel ProviderMD - 12/20/2018 4:47 PM CDT [facility] [place] IntraOp Summary Primary Physician: MAURICIO BARAJAS MD Finalized Date/Time: 12/21/18 09:46:01 Pt. Name: ANUP GEE /Sex: 1935 Male Med Rec #: [id number] Physician: MAURICIO BARAJAS MD Financial #: [id number] Pt. Type: O Room/Bed: [facility] Admit/Disch: 12/20/18 13:47:00 - 12/20/18 18:25:00 Institution: [facility] IntraOp Case Attendance Entry 1 Entry 2 Entry 3 Case Attendee MAURICIO BARAJAS MD Davis, Aleitha E, RN Meme Morales, Engine Designer Role Performed Surgeon/Proceduralist, Appraiser Irrigation Tax, First Scrub, First First Time In 12/20/18 [...] 5 Entry 6 Case Attendee JULIETA CLAY, WASTE DISPOSAL LEAKAGE TESTER VICENTA SUAZO, WASTE DISPOSAL LEAKAGE TESTER URBAN KEEN MD Role Performed WASTE DISPOSAL LEAKAGE TESTER/Nurse Cement Truck Driver WASTE DISPOSAL LEAKAGE TESTER/Nurse Cement Truck Driver Surgeon/Proceduralist, Second Time In 12/20/18 16:32:00 12/20/18 [...] [facility] IntraOp Case Attendance Audit 12/20/18 18:04:21 Director Of Campus Recreation: LISSETTE Modifier: LISSETTE 1 <+> Time Out [...] Plana 25 Gauge, Scleral Buckling 12/20/18 17:51:09 Director Of Campus Recreation: ALEITHADAVIS Modifier: ALEITHADAVIS 5 <+> Time Out 5 <*> Procedure Vitrectomy Pars Plana 25 Gauge, Scleral Buckling <+> 7 Case Attendee <+> 7 Role Performed <+> 7 Time In <+> 7 Procedure 12/20/18 17:08:18 Director Of Campus Recreation: ALEITHADAVIS Modifier: ALEITHADAVIS 1 <*> Procedure Vitrectomy [...] Plana 25 Gauge, Scleral Buckling 12/20/18 16:53:32 Director Of Campus Recreation: ALEITHADAVIS Modifier: ALEITHADAVIS 1 <*> Time In 12/20/18 16:32:00 1 <+> Procedure <+> 6 Case Attendee <+> 6 Role Performed <+> 6 Procedure 12/20/18 16:50:09 Director Of Campus Recreation: ALEITHADAVIS Modifier: ALEITHADAVIS <+> 1 Time In [...] Time In <+> 5 Procedure 12/20/18 16:14:07 Director Of Campus Recreation: ALEITHADAVIS Modifier: ALEITHADAVIS <+> 4 Case Attendee [...] [facility] IntraOp Case Times Audit 12/20/18 18:04:20 Director Of Campus Recreation: ALEITHADAVIS Modifier: ALEITHADAVIS <+> 1 Out Room Time <+> 1 Stop Time 12/20/18 18:01:58 Director Of Campus Recreation: ALEITHADAVIS Modifier: ALEITHADAVIS <+> 1 Stop Time [...] By Count Performed By Meme Morales, (Scrub) Engine Designer Count Performed By Weston Araujo RN (RN) Last Modified By: Weston Araujo RN 12/20/18 16:01:56 [facility] IntraOp Counts Final Entry 1 Procedure Vitrectomy Pars Plana 25 Gauge, Scleral Buckling Final Count Info Count Type Sharps Counts Verification Skin Closure/end of Sequence procedure Count Results Correct, surgeon notified Counts Performed By Count Performed By Meme Morales (Scrub) Engine Designer Count Performed By Weston Araujo RN (RN) Last Modified By: Weston Araujo RN 12/20/18 17:53:52 [facility] IntraOp Counts Final Audit 12/20/18 17:53:52 Director Of Campus Recreation: LISSETTE Modifier: MICHELITHADAVIS 1 <*> Procedure Vitrectomy [...] RN 12/20/18 16:02:10 [facility] IntraOp General Case Overlock Operator 1 Case Information OR OR 08 [facility] Case Level 1 Room Verified Yes Wound Class I - Clean Specialty SN Ophthalmology Anesthesia Type MAC ASA Class 2 Diagnosis Preop Diagnosis LEFT RETINAL DETACHMENT Postop Same As Preop Yes Postop Diagnosis LEFT RETINAL DETACHMENT Last Modified By: Weston Araujo RN 12/20/18 16:50:47 [facility] IntraOp General Case Data Audit 12/20/18 16:50:47 Director Of Campus Recreation: LISSETTE Modifier: ALEITHADAVIS <+> 1 ASA Class <+> 1 Postop Same As Preop <+> 1 Preop Diagnosis <+> 1 Postop Diagnosis [facility] IntraOp Implant Log Entry 1 Entry 2 Type Implant (Synthetic) Implant (Synthetic) Implant Log Implant Type Other Other Tissue Implant Type Implant SLV JAMAR 1.00MM IMP RETIN BND Identification [id number] Description Implant Quantity 1 1 Implant Site LEFT EYE LEFT EYE Implant Identification Model Number Implant Identification Serial Number Implant [id number] Identification Lot Number Implant Labtician Ophthalmics Labtician Ophthalmics Identification Business Librarian Name: Implant [id number] Identification Catalog Number Implant Size Implant Has an Yes Yes Expiration Date Implant Expiration 02/11/25 11/11/24 Date Wasted Radioactive Material Time Implanted Tissue Implant Continue for Tissue Implant Documentation Tissue Identification Number Graft Prep Per Business Librarian Instructions: Tissue Preparation Method: Reconstitution Solution: Reconstitution Solution Lot Number Reconstitution Solution Expiration Date: Thawing Solution Thawing Solution Lot Number Thawing Solution Expiration Date Preparation Materials, Other Preparation Materials, Other Lot Number Preparation Materials, Other Expiration Date Tissue Prepared/Processed By Business Librarian Paperwork Completed Implant Type Comment Last Modified By: Weston Araujo RN Davis, Aleitha E, RN 12/20/18 16:53:03 12/20/18 16:53:03 [facility] IntraOp Implant Log Audit 12/20/18 16:53:03 Director Of Campus Recreation: LISSETTE Modifier: LISSETTE Hoang <+> Implant Identification Description 1 <+> Implant Identification Lot Number 1 <+> Implant Identification Business Librarian Name: 1 <+> Implant Expiration Date 1 <*> Implant Site LEFT EYE 1 <*> Implant Quantity 1 1 <+> Implant Identification Catalog Number 1 <*> Implant Type Other 1 <*> Implant Has an Expiration Date Yes 1 <*> Type Implant (Synthetic) 2 <+> Implant Identification Description 2 <+> Implant Identification Lot Number 2 <+> Implant Identification Business Librarian Name: 2 <+> Implant Expiration Date 2 [...] personnel Measures Included received laser safety information, [place] of water/Saline immediately available, Fire extinguisher location [...] Marcaine 0.75% Vitrase 200units/ml - injectable - [id number] 7.5mg/1ml 10ml [id number] injection - [id number] Combo Med List 1 - Combo Med [...] Decadron 10mg 1ml - BSS 15ml - [id number] Combo Med List Time Administered Route of SUBCONJ SUBCONJ IRRIGATION Administration Dose Dose 0.5 0.5 15 Unit of Measure ml ml ml Volume 0.5ML 10MG/1ML QS Administered By MAURICIO BARAJAS MD SHIRKEY, BELINDA, MD Imbriglio, Rosalie, Engine Designer Procedure Irrigation Irrigant Volume In Irrigant Volume Out Last Modified By: Weston Araujo RN Davis, Aleitha E, Weston Li RN 12/20/18 16:05:42 12/20/18 16:05:42 12/20/18 16:05:42 Entry 7 Entry 8 Entry 9 Medication/Irrigant [facility]CUCO[facility] INJ MAXITROL 3.5 OPTHALMIC BSS Plain 500ml - 1ML [id number] [id number] OINTMENT [id number] Combo Med List Time Administered Route of [...] Intra Op Sign Out Audit 12/20/18 18:02:01 Director Of Campus Recreation: LISSETTE Modifier: LISSETTE <+> 1 RN Sign [...] [facility] IntraOp Surgical Procedures Audit 12/20/18 18:02:01 Director Of Campus Recreation: LISSETTE Modifier: ALLISONADAVIS <+> 1 Start <+> [...] [facility] IntraOp Time Out Audit 12/20/18 16:51:30 Director Of Campus Recreation: LISSETTE Modifier: ALEITHADAVIS 1 <+> Beta Ezequiel [...] 12/21/18 09:45 AISHA Modify Pick List S Electronically signed by [facility] Conversion Disk Recordist Cerner at 12/03/2022 9:34 AM CDT documented in this encounter Plan of Treatment Not on file documented as of this encounter Visit Diagnoses Not on filedocumented in this encounter
--- OUTSIDE RECORDS SUMMARY | 2025-05-08 10:49 | XMS_ITS | Clinical Summary ---
Author Organization [employer] ([place], [place], [place], [place]) Address [address] [place] [address] Care Team Providers Care Hand Stripper Name Role Phone Unavailable Primary Care Provider [...]
--- OUTSIDE RECORDS SUMMARY | 2025-05-08 10:49 | XMS_ITS | Encounter Summary ---
Author Organization [employer] ([place], [place], [place], [place]) Address [address] [place] [address] Care Team Providers Care Greaser Operator Name Role Phone Unavailable Primary Care Provider Unavailabl e Encounter Details Date Type Department Care Team (Late st Contact Info) Description 12/20/2018 Transcribed Document [facility] [place] Family Medicine [address] [place] [address] ProviderMagdiel MD [address] [place] [address] Social History Tobacco Use Types [...] activities are safe for you. ??? Take [id number] and prescription medicines only as told by [...] 07/15/2016 Else[employer] Interactive Patient Education ? 2017 [employer] documented in this encounter Plan of Treatment Not on file documented as of this encounter Visit Diagnoses Not on filedocumented in this encounter
== END 2025-05-03 23:59 ==
LOC: LAB.DROPOF 05-08 10:46
PROVIDERS: PCP Internal Medicine; Visit Provider Internal Medicine
DX: Z00.00 Encounter for general adult medical examination without abnormal findings (principal); Z12.5 Encounter for screening for malignant neoplasm of prostate; Z79.899 Other long term (current) drug therapy
CPT/HCPCS: 80053; 85025; G0103

== ENCOUNTER 2025-05-17 07:27 | Outpatient (CLI) | payer MEDICARE, OTHER, SELFPAY ==
[2025-05-17 13:56] LABS: Hematocrit 43.9 % (42.0-52.0); Hemoglobin 14.6 g/dL (14.1-18.0); Immature Granulocytes % 0.2 %; Mean Corpuscular HGB Conc 33.3 g/dL (31.8-35.4); Mean Corpuscular Hemoglobin 31.9 pg (27.0-31.2); Mean Corpuscular Volume 95.9 fl (80-94); Nucleated Red Blood Cells % 0 %; Platelet Count 158 K/mm3 (142-424); Red Blood Count 4.58 M/mm3 (4.60-6.20); Red Cell Distribution Width-SD 45.6 fL; White Blood Count 5.4 K/mm3 (4.8-10.8)
== END 2025-05-17 23:59 ==
LOC: LAB.DROPOF 05-21 07:29
PROVIDERS: PCP Internal Medicine; Visit Provider Internal Medicine
DX: Z00.00 Encounter for general adult medical examination without abnormal findings (principal); Z79.899 Other long term (current) drug therapy
CPT/HCPCS: 85025

== ENCOUNTER 2025-05-23 08:46 | Outpatient (CLI) | payer MEDICARE, OTHER, SELFPAY ==
--- NOTE | 2025-05-23 08:58 | XR_ITS ---
FINAL REPORT CLINICAL HISTORY: increasing right knee pain, recent blood clot in right leg FINDINGS: AP, lateral and oblique views of the right knee were obtained. There is no prior exam for comparison. There is no acute osseous abnormality of the right knee. There is degenerative joint disease. The soft tissues are normal. There is no joint effusion. IMPRESSION: No acute osseous abnormality of the right knee. Reviewed, Interpreted and Dictated by Maryan Hidalgo MD Transcribed by Laya Lopez Authenticated and [facility]
== END 2025-05-23 23:59 | disposition home or self-care (01) ==
LOC: RAD 08:48
PROVIDERS: PCP Internal Medicine; Visit Provider Physician Assistant Surgical
DX: M17.11 Unilateral primary osteoarthritis, right knee (principal); Z86.718 Personal history of other venous thrombosis and embolism
CPT/HCPCS: 73562